=== PATIENT | male | born 1970 | race Two or more races ===

== ENCOUNTER 2020-05-18 14:05 | Outpatient (REF) | payer OTHER, SELFPAY | END 2020-05-18 14:06 | disposition home or self-care (01) | LOC: HO.LAB 14:05 | PROVIDERS: Visit Provider Internal Medicine | DX: Z20.822 Contact with and (suspected) exposure to COVID-19 (principal) | CPT/HCPCS: 36415; C9803; U0003 ==

== ENCOUNTER 2020-05-31 12:18 | Outpatient (REF) | payer OTHER, SELFPAY | END 2020-05-31 12:19 | disposition home or self-care (01) | LOC: HO.LAB 12:18 | PROVIDERS: Visit Provider Internal Medicine | DX: Z20.822 Contact with and (suspected) exposure to COVID-19 (principal) | CPT/HCPCS: 36415; C9803; U0003; U0005 ==

== ENCOUNTER 2021-06-04 10:07 | Outpatient (REF) | payer OTHER, SELFPAY ==
[2021-06-04 10:42] LABS: COVID-19 Test Negative (Negative)
== END 2021-06-04 10:08 | disposition home or self-care (01) ==
LOC: HO.LAB 10:07
PROVIDERS: Visit Provider Internal Medicine
DX: Z20.822 Contact with and (suspected) exposure to COVID-19 (principal)
CPT/HCPCS: 87635; C9803

== ENCOUNTER 2021-09-14 07:06 | Outpatient (REF) | payer OTHER, SELFPAY ==
[2021-09-14 07:24] LABS: MANUAL DIFF FLAG NO
[2021-09-14 07:43] LABS: Basophils Absolute Auto 0.1 X10*3/uL (0.0-0.2); Basophils Percent Auto 0.7 % (0-2); Eosinophils Absolute Auto 0.2 X10*3/uL (0.0-0.4); Eosinophils Percent Auto 2.2 % (0-4); Hematocrit 36.6 % (42.0-52.0); Imm Gran Abs Auto 0.02 X10*3/uL (0.00-0.03); Imm Gran Pct Auto 0.3 % (0.0-0.4); Lymphocytes Absolute Auto 1.7 X10*3/uL (1.2-4.9); Lymphocytes Percent Auto 24.6 % (20-40); Mean Corpuscular HGB Conc 32.8 g/dl (31.0-36.0); Mean Corpuscular Volume 88.4 fL (80.0-98.0); Mean Platelet Volume 8.9 fL (9.4-12.4); Monocytes Absolute Auto 0.5 X10*3/uL (0.1-1.2); Monocytes Percent Auto 7.6 % (2-11); Neutrophils Absolute Auto 4.4 x10*3/uL (2.0-8.3); Neutrophils Percent Auto 64.6 % (45-73); Platelet Count 396 X10*3/uL (160-400); Red Blood Count 4.14 X10*6/uL (4.60-5.80); Red Cell Distribution Width 13.5 % (11.0-16.0); White Blood Count 6.8 X10*3/uL (4.8-10.8)
[2021-09-14 08:10] LABS: Alanine Aminotransferase 15 U/L (0-40); Albumin Level 4.2 g/dL (3.5-5.0); Alkaline Phosphatase 113 U/L (39-117); Anion Gap 10 (12-20); Aspartate Amino Transferase 26 U/L (5-37); Bilirubin Total 0.4 mg/dL (0.0-1.0); Blood Urea Nitrogen 13 mg/dL (9-16); Calcium 9.8 mg/dL (8.4-10.2); Carbon Dioxide 26 mmol/L (22-29); Chloride 105 mmol/L (96-108); Cholesterol 107 mg/dL; Estimated Glomerular Filt Rate > 60; Glucose Fasting 86 mg/dL (60-99); HDL Cholesterol 31 mg/dL; LDL Cholesterol Calculated 69 mg/dl; Potassium 4.2 mmol/L (3.3-5.1); Sodium 137 mmol/L (135-145); Total Protein 7.5 g/dL (6.5-8.0); Triglycerides 36 mg/dL
[2021-09-14 08:18] LABS: Erythrocyte Sedimentation Rate 8 MM/HR (0-15)
[2021-09-14 08:31] LABS: Prostate Specific Antigen Scr 1.02 ng/mL (<0.05-4.0); TSH reflex Free T4 2.01 uIU/mL (0.32-4.0)
[2021-09-14 08:33] LABS: Vitamin D 25-OH Total 34.1 ng/mL (>30)
[2021-09-14 09:59] LABS: Appearance Urine CLEAR; Color Urine YELLOW; Glucose Urine UA NEG (NEG); Leukocyte Esterase Urine NEG (NEG); Nitrite Urine NEG (NEG); Specific Gravity - Urine 1.015 (1.005-1.025); Urine Blood NEG (NEG); Urine Ketones NEG (NEG); Urine Protein NEG (NEG-TRACE)
[2021-09-14 10:22] LABS: Total Protein Urine Random 8 mg/dL (<12)
[2021-09-17 13:32] LABS: Complement C3 54 mg/dL (82-185)
[2021-09-18 11:56] LABS: DNAds, Crithidia Antibody Negative (Negative)
[2021-09-18 14:17] LABS: Anti DNA DS Antibody <1 IU/mL
== END 2021-09-14 07:07 | disposition home or self-care (01) ==
LOC: HO.LAB 07:06
PROVIDERS: PCP Internal Medicine; Visit Provider Internal Medicine
DX: Z00.00 Encounter for general adult medical examination without abnormal findings (principal); Z12.5 Encounter for screening for malignant neoplasm of prostate; E55.9 Vitamin D deficiency, unspecified; M32.9 Systemic lupus erythematosus, unspecified; M34.9 Systemic sclerosis, unspecified; M79.7 Fibromyalgia
CPT/HCPCS: 36415; 80053; 80061; 81003; 82306; 84153; 84156; 84443; 85025; 85652; 86140; 86160; 86225; 86255

== ENCOUNTER → 2021-10-15 14:50 | Outpatient (BNVA) | payer OTHER, SELFPAY | PROVIDERS: PCP Internal Medicine; Visit Provider Orthopaedic Surgery | DX: S66.122D Laceration of flexor muscle, fascia and tendon of right middle finger at wrist and hand level, subsequent encounter (principal) | CPT/HCPCS: 99202 ==

== ENCOUNTER → 2021-11-12 14:51 | Outpatient (BNVA) | payer OTHER, SELFPAY | PROVIDERS: PCP Internal Medicine; Visit Provider Nurse Practitioner | DX: Z01.818 Encounter for other preprocedural examination (principal); J84.89 Other specified interstitial pulmonary diseases; M35.9 Systemic involvement of connective tissue, unspecified | CPT/HCPCS: 99202; 99212 ==

== ENCOUNTER 2021-11-25 12:29 | Outpatient (REF) | payer OTHER, SELFPAY ==
[2021-11-25 12:58] LABS: Binax Internal Control QC Valid; Binax Now Covid-19 Ag Negative (Negative)
== END 2021-11-25 12:30 | disposition home or self-care (01) ==
LOC: HO.HMGCLDS 12:29
PROVIDERS: PCP Internal Medicine; Visit Provider Internal Medicine
DX: Z20.822 Contact with and (suspected) exposure to COVID-19 (principal); J06.9 Acute upper respiratory infection, unspecified
CPT/HCPCS: 0241U; 71046; 87811; 99282; 99283; C9803

== ENCOUNTER 2021-11-25 16:54 | Emergency (ER) | payer OTHER, SELFPAY ==
--- NOTE | ~2021-11-25 | XR_ITS ---
EXAMINATION: XR CHEST CLINICAL INFORMATION: Shortness of breath COMPARISON: Chest radiograph 04/18/2017, CTA chest 09/11/2016 TECHNIQUE: 2 views of the chest were obtained. FINDINGS: Heart size normal. No evidence of gross CHF. Of note, there is a new left-sided perihilar infiltrate present. Some minimal perihilar streaky densities are present on the right which were also present in 2017. At the time of the 2017 study emphysema was shown in both lungs along with groundglass and reticular opacities suggesting interstitial lung disease. No pleural effusions are seen. No definite lung masses are seen XR/XR chest 2V IMPRESSION: New left perihilar infiltrate which could be infectious etiology. Contrast-enhanced chest CT may be useful for further evaluation.
[2021-11-25 18:30] VITALS: BP 118/71; PULSE 87; RESP 18; TEMP 37.3; O2SAT 98; BMI 25.8
[2021-11-25 19:21] LABS: Influenza A PCR NEGATIVE (Negative); Influenza B PCR NEGATIVE (Negative); Resp Syncy Virus RNA Qual PCR NEGATIVE (Negative); SARS COV2 PCR INHOUSE POSITIVE (Negative)
--- NOTE | 2021-11-25 21:48 | ED_ITS ---
HPI - URI/Sore Throat General Chief Complaint: Upper Respiratory Symptoms Stated Complaint: covid? Time Seen by Provider: 11/25/21 21:21 Source: patient Mode of arrival: ambulatory Limitations: no limitations History of Present Illness HPI Narrative: Patient presents emergency department for evaluation of shortness of breath, sore throat, fevers, diarrhea. Reports symptom onset 3 days ago. Denies any known sick contacts. Has not been vaccinated for COVID-19. Denies headache, vision changes, dizziness, lightheadedness, neck pain, neck stiffness, chest pain, nausea, vomiting, abdominal pain, numbness or tingling in the extremities, weakness. Related Data Home Medications Medication Instructions Recorded Confirmed hydroxychloroquine 200 mg tablet 200 mg PO BID 09/11/21 09/11/21 mycophenolate mofetil 500 mg tablet 1,500 mg PO BID 09/11/21 09/11/21 Previous Rx's Medication Instructions Recorded peg 3350-electrolytes 236 240 ml PO Q10M 1 day #4,000 mL 11/12/21 gram-22.74 gram-6.74 gram-5.86 gram solution (Golytely) amoxicillin 875 mg-potassium 1 tab PO Q12H 7 days #14 tabs 11/25/21 clavulanate 125 mg tablet Allergies Allergy/AdvReac Type Severity Reaction Status Date / Time No Known Allergies Allergy Verified 11/25/21 18:33 [No Known Allergies*] Review of Systems Review of Systems: Constitutional: Positive fever. Positive chills. No weak ness. Positive fatigue. ENT/ Mouth: No Ear Pain, no Nasal Congestion, positive sore throat, No Rhinorrhea, No Swallowing Difficulty Skin: No rash or itching. Cardiovascular: No chest pain. No palpitations. Respiratory: No shortness of breath. Positive cough. No sputum production. Gastrointestinal: No nausea. No vomiting. Positive diarrhea. No abdominal pain. Genitourinary: No burning micturition. No urinary frequency. Neurologic: No headache. No dizziness. No syncope. No numbness or tingling in the extremities. Musculoskeletal: No muscle pain. No back pain. No joint pain or stiffness. Yes all other systems are reviewed and are negative PMFSH Past Medical History Attestation statement: The following information was validated with the patient. Source: old records reviewed Medical History Interstitial lung disease due to connective tissue disease Scleroderma Systemic lupus erythematosus Surgical History H/O left inguinal hernia repair (~1976) History of lymph node excision (~10/08/16) S/P tendon repair (~09/23/17) Family History Family History Father Diabetes High blood pressure Mother High blood pressure Social History Social History Housing: House Alcohol intake: former Patient Tobacco Use Status: Never used Tobacco Second Hand Smoke Exposure: No Advance Directives: No Advance Directives Information Provided: No service: No Current occupational status: employed 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 Blood pressure normal.? Heart rate normal.? Respiration rate normal. Temperature normal.? Oxygen saturation normal. Appearance: Alert.?Oriented to person, place and time. No acute distress.?Normal affect. Eyes: Pupils equal, round and reactive to light.? ENT: TM normal bilaterally. Pharynx normal.?? Neck: Normal inspection.? Neck supple.??No cervical adenopathy CVS: Heart sounds normal. Normal heart rate and rhythm.? Pulses normal.?? Respiratory: No respiratory distress.? Lung sounds clear to auscultation b ilaterally?? Abdomen: Soft and non-tender. Normoactive bowel sounds. Skin: Skin warm and dry.? Normal skin color.? ? Extremities: No lower extremity edema.? Neuro: Moves all extremities spontaneously. Sensation intact bilaterally. No motor deficits. Ambulates with normal steady gait. Course Course Course Narrative: Patient is a 50-year-old male with past medical history of lupus, scleroderma, interstitial lung disease, presenting for evaluation of upper respiratory symptoms. COVID-19 testing is positive. One would aware of this he states that he actually tested positive for COVID-19 1 month ago, at that time he was having mild URI symptoms and diarrhea. He has not been vaccinated for COVID-19. Since it has been greater than 7 days, patient would not be a candidate for monoclonal antibodies or Paxlovid. Given his past medical history, obtained chest x-ray which revealeda left perihilar infiltrate concerning for pneumonia. Given past medical history, immunosuppression concern for superimposed bacterial infection, will cover with Augmentin. Ambulatory O2 trial with no hypoxia or significant tachycardia. Well-appearing, nontoxic, afebrile, at rest no tachycardia or tachypnea/hypoxia. Speaking clear full sentences, ambulatory with steady gait. Discussed conservative treatment including rest, hydration, Tylenol/ibuprofen as needed for fever and body aches, saline nasal spray, humidifier, [id number] cold medication. Advised to follow-up with primary care provider within 1-3 days, discussed reasons to return back to the emergency department. All questions were answered. Patient discharged home in stable condition. MDM - URI/Sore Throat Medical Records Attestation: I reviewed the patient's medical records. Lab Data Attestation: I reviewed the patient's lab results. Labs: Lab Results 11/25/21 Range/Units 18:37 Influenza Type A (PCR) NEGATIVE (Negative) Influenza Type B (PCR) NEGATIVE (Negative) RSV RNA Qual (PCR) NEGATIVE (Negative) SARS-CoV-2 RNA (RT-PCR) POSITIVE A (Negative) Imaging Data Chest x-ray: Radiologist's impression: FINDINGS: Heart size normal. No evidence of gross CHF. Of note, there is a new left-sided perihilar infiltrate present. Some minimal perihilar streaky densities are present on the right which were also present in 2017. At the time of the 2017 study emphysema was shown in both lungs along with groundglass and reticular opacities suggesting interstitial lung disease. No pleural effusions are seen. No definite lung masses are seen XR/XR chest 2V IMPRESSION: New left perihilar infiltrate which could be infectious etiology. Contrast-enhanced chest CT may be useful for further evaluation. Discharge Plan Discharge Clinical Impression: COVID-19, Pneumonia Patient Disposition: Home, Self-Care Instructions: Pneumonia (ED), COVID-19 (Coronavirus Disease 2019) (ED) Additional Instructions: Your COVID-19 test was positive. Be sure to wear a mask, socially distance, you should isolate for 5 days, if her symptoms had resolved after 5 days, and your without a fever for 24 hour. Without the use of Tylenol/ibuprofen you may enter isolation. Additionally, your chest x-ray shows an area on the left concerning for a pneumonia, for this you have been given a course of antibiotics, please complete this entire course. If you develop worsening symptoms, fevers not responding to Tylenol, chest pain, difficulty breathing, confusion, or any new/worsening concerns you should return back to the emergency department for evaluation. Please contact your primary care provider to arrange for a follow-up visit within 1-3 days Prescriptions: New amoxicillin-pot clavulanate 875-125 mg tablet 1 tab PO Q12H 7 Days Qty: 14 0RF No Action hydroxychloroquine 200 mg tablet 200 mg PO BID mycophenolate mofetil 500 mg tablet 1,500 mg PO BID peg 3350-electrolytes [Golytely] 236-22.74-6.74 -5.86 gram recon soln 240 ml PO Q10M 1 Days Qty: 4000 0RF Rx Instructions: until fecal effluent is clear; do not exceed a total volume of 2,000 mL Interventions: ED Discharge Assessment Last Done: 11/25/21 23:06 Discharge Date/Time: 11/25/21 23:08
[2021-11-25 21:50] VITALS: PULSE 105; O2SAT 98
== END 2021-11-25 23:08 | disposition home or self-care (01) ==
PROVIDERS: Emergency Provider Emergency Medicine; PCP Internal Medicine
DX: U07.1 COVID-19 (principal); J12.82 Pneumonia due to coronavirus disease 2019; J02.9 Acute pharyngitis, unspecified; R06.02 Shortness of breath; M32.9 Systemic lupus erythematosus, unspecified
CPT/HCPCS: 0241U; 71046; 87811; 99282; 99283; C9803

== ENCOUNTER 2021-12-14 07:23 | Outpatient (REF) | payer OTHER, SELFPAY ==
[2021-12-14 07:54] LABS: MANUAL DIFF FLAG NO
[2021-12-14 08:20] LABS: Basophils Percent Auto 0.4 % (0-2); Eosinophils Percent Auto 0.4 % (0-4); Hematocrit 34.2 % (42.0-52.0); Hemoglobin 10.9 g/dl (14.0-18.0); Imm Gran Abs Auto 0.03 X10*3/uL (0.00-0.03); Imm Gran Pct Auto 0.4 % (0.0-0.4); Lymphocytes Absolute Auto 1.3 X10*3/uL (1.2-4.9); Mean Corpuscular HGB Conc 31.9 g/dl (31.0-36.0); Mean Corpuscular Volume 87.9 fL (80.0-98.0); Mean Platelet Volume 9.3 fL (9.4-12.4); Monocytes Absolute Auto 0.4 X10*3/uL (0.1-1.2); Neutrophils Absolute Auto 6.2 x10*3/uL (2.0-8.3); Neutrophils Percent Auto 77.8 % (45-73); Platelet Count 412 X10*3/uL (160-400); Red Blood Count 3.89 X10*6/uL (4.60-5.80); Red Cell Distribution Width 13.7 % (11.0-16.0)
[2021-12-14 08:30] LABS: Appearance Urine Clear; Color Urine Yellow; Glucose Urine UA Negative (Negative); Leukocyte Esterase Urine Negative (Negative); Nitrite Urine Negative (Negative); PH 5.5 (5.0-8.0); Specific Gravity - Urine 1.025 (1.005-1.025); Urine Blood Negative (Negative); Urine Ketones Negative (Negative); Urine Protein Trace mg/dL (Neg-Trace)
[2021-12-14 08:45] LABS: Alanine Aminotransferase 13 U/L (0-40); Alkaline Phosphatase 90 U/L (39-117); Anion Gap 13 (12-20); Aspartate Amino Transferase 14 U/L (5-37); Bilirubin Total 0.4 mg/dL (0.0-1.0); Blood Urea Nitrogen 14 mg/dL (9-16); C Reactive Protein 0.18 mg/dL (< or = 0.50); Calcium 9.1 mg/dL (8.4-10.2); Carbon Dioxide 25 mmol/L (22-29); Chloride 105 mmol/L (96-108); Estimated Glomerular Filt Rate > 60; Glucose Random 97 mg/dL (60-115); Potassium 4.2 mmol/L (3.3-5.1); Sodium 139 mmol/L (135-145); Total Protein 7.3 g/dL (6.5-8.0)
[2021-12-14 08:54] LABS: Creatinine Urine 131.08 mg/dL; Protein/Creatinine Ratio, Ur 0.14 (<0.2); Total Protein Urine Random 19 mg/dL (<12)
[2021-12-14 09:24] LABS: Erythrocyte Sedimentation Rate 12 MM/HR (0-15)
[2021-12-16 16:17] LABS: Anti DNA DS Antibody <1 IU/mL
[2021-12-17 11:12] LABS: Complement C3 92 mg/dL (82-185)
[2021-12-18 06:32] LABS: DNAds, Crithidia Antibody Negative (Negative)
== END 2021-12-14 07:24 | disposition home or self-care (01) ==
LOC: HO.LAB 07:23
PROVIDERS: PCP Internal Medicine; Visit Provider Internal Medicine Rheumatology
DX: M32.13 Lung involvement in systemic lupus erythematosus (principal)
CPT/HCPCS: 36415; 80053; 81003; 84156; 85025; 85652; 86140; 86160; 86225; 86255

== ENCOUNTER 2022-01-07 15:12 | Outpatient (REF) | payer OTHER, SELFPAY | END 2022-01-07 15:13 | disposition home or self-care (01) | LOC: HO.LAB 15:12 | PROVIDERS: PCP Internal Medicine; Visit Provider Internal Medicine | DX: Z13.89 Encounter for screening for other disorder (principal) ==

== ENCOUNTER 2022-01-11 07:59 | Outpatient (REF) | payer OTHER, SELFPAY ==
[2022-01-11 09:00] LABS: Leukocytes Stool Qualitative NEGATIVE (NEGATIVE)
== END 2022-01-11 08:00 | disposition home or self-care (01) ==
LOC: HO.LNP 07:59
PROVIDERS: Visit Provider Internal Medicine
DX: R19.7 Diarrhea, unspecified (principal)
CPT/HCPCS: 87070; 87177; 87205; 87209; 89055

== ENCOUNTER 2022-01-28 13:28 | Outpatient (REF) | payer OTHER, SELFPAY | END 2022-01-28 13:29 | disposition home or self-care (01) | LOC: HO.LAB 13:28 | PROVIDERS: PCP Internal Medicine; Visit Provider Internal Medicine | DX: Z13.89 Encounter for screening for other disorder (principal) ==

== ENCOUNTER 2022-02-24 07:24 | Outpatient (REF) | payer OTHER, SELFPAY ==
--- NOTE | ~2022-02-24 | CT_ITS ---
EXAMINATION: CT CHEST WITHOUT CONTRAST CLINICAL INFORMATION: Abnormal lung findings on chest x-ray 11/25/2021. COMPARISON: Chest x-ray 11/25/2021. TECHNIQUE: Multidetector volumetric CT imaging of the chest was done. Axial MIP volume rendering provided. Sagittal and coronal reformatted images were obtained. This CT examination was performed using dose optimization techniques as appropriate, variously including the following: *Automated exposure control *Adjustment of mA and/or kV according to patient size (this includes techniques or standardized protocols for targeted exams where dose is matched to indication/reason for exam; i.e. extremities or head) *Use of iterative reconstruction technique DLP: 142 mGy-cm FINDINGS: [employer]: Well-expanded lungs with bilateral parahilar haziness. LUNGS: The lungs are well expanded with peripheral-based focal honeycombing seen in the right upper lobe anterior segment, minimal involvement of the left upper lobe anterior segment, superior and basilar segments of both lower lobe. No focal consolidation, mass or nodule seen. Similar findings are also seen involving the dependent segments of the right middle lobe. No parahilar soft tissues abnormality seen to corroborate chest x-ray findings. There is a subpleural 3 mm nodule in the right middle lobe, axial image 139/6. Punctate calcification is seen in both lower lobes in dependent segments, nonspecific. MEDIASTINUM: The thyroid lobes are symmetrical with a hypodense 1.1 cm nodule right lobe. The central trachea and the bronchi widely patent. Heart size and the great vessels are of normal caliber. No pericardial effusion is seen. No abnormal size mediastinal or hilar lymph nodes are seen. There is no pericardial effusion. CORONARY ARTERY CALCIFICATION: None visualized on this study. PLEURA: There is no pleural effusion. No pleural mass or thickening. AXILLA: There are bilateral moderate size axillary lymph nodes. The largest right axillary lymph node with eccentric lucency measures 2.1 cm on axial image 9/8 and left axillary lymph node measures 2.1 cm on axial image 10/3. UPPER ABDOMEN: Visualized liver, spleen, pancreas appears unremarkable. There is a 2.3 cm cyst of the upper/midpole of the right kidney. OSSEOUS STRUCTURES: No aggressive lytic or sclerotic process is seen. CT/CT chest wo IV con IMPRESSION: 1. Peripheral-based honeycombing seen in both upper lobes and both lower lobes. No focal consolidation, mass or nodule seen. Findings may represent low-grade inflammatory or infectious etiology. However similar findings can be seen with pulmonary fibrosis. 2. There is a subpleural 3 mm nodule right middle lobe. 3. No abnormal mediastinal or hilar lymph nodes seen. 4. Bilateral moderate size axillary lymph nodes with eccentric fatty lucency. Question benign etiology. 5. Right renal cyst. Fleischner guidelines were followed.
--- NOTE | 2022-02-24 17:36 | PFT_ITS ---
Forced vital capacity 86%, FEV1 90%, FEV1 over FVC ratio is 82. HHO15-80 98% and MVV is 92%. Post bronchodilator therapy, there is no significant change. Total lung capacity 73%. Residual volume is 46%. Diffusion capacity 70%. CONCLUSION: Possible mild restrictive pulmonary disorder. No obstructive airway disorder. No significant response to bronchodilator therapy. MD NGHIA Jara/MODL / [id number]
== END 2022-02-24 07:25 | disposition home or self-care (01) ==
LOC: HO.RESP 07:24
PROVIDERS: PCP Internal Medicine; Visit Provider Hospitalist
DX: R39.89 Other symptoms and signs involving the genitourinary system (principal); M34.9 Systemic sclerosis, unspecified; M32.13 Lung involvement in systemic lupus erythematosus; J84.89 Other specified interstitial pulmonary diseases; M35.9 Systemic involvement of connective tissue, unspecified
CPT/HCPCS: 71250; 94060; 94727; 94729

== ENCOUNTER 2022-04-07 09:06 | Day surgery (SDC) | payer OTHER, SELFPAY ==
[2022-04-02 12:02] VITALS: BMI 25.0
--- NOTE | 2022-04-04 13:21 | HO.ANESPROP2 ---
Documented by User: Heather Angeles NP 04/04/22 13:25 HPI - Anesthesia Eval Consult details Narrative: 51yo M for Colonoscopy SLE with ILD - on plaquinel. Per pulmo visit 01/2022 In his pulmonary capacity has significantly improved. He feels alot better.? His last PFTs demonstrated a total lung capacity of 72% predicted and his last CT scan was about a couple years ago. [facility] Active Problems Active Problems: All Active Problems (Updated 04/02/22 @ 11:45 by Mariya Jones RN) Contracture of joint of right hand (Acute) Annual physical exam (Acute) Colon cancer screening (Acute) Preop examination (Acute) Upper respiratory tract infection (Acute) COVID-19 (Acute) Diarrhea (Acute) Inflammatory arthritis (Acute) Abnormal chest x-ray (Acute) Scleroderma (Acute) Systemic lupus erythematosus (Acute) Interstitial lung disease due to connective tissue disease (Acute) Past Medical History Medical History (Updated 04/02/22 @ 11:45 by Mariya Jones RN) History of COVID-19 Interstitial lung disease due to connective tissue disease Scleroderma Systemic lupus erythematosus Family History Family History Father Diabetes High blood pressure Mother High blood pressure Surgical History Surgical History (Updated 04/02/22 @ 11:46 by Mariya Jones RN) H/O left inguinal hernia repair (~1976) History of lymph node excision (~10/08/16) S/P tendon repair (~09/23/17) Social History Social History Housing: House Alcohol intake: former Patient Tobacco Use Status: Never used Tobacco Second Hand Smoke Exposure: No Are you DNR?: No Advance Directives: No Advance Directives Information Provided: Yes service: No Current occupational status: employed 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 Cognitive needs: No Hearing needs: No Vision needs: No Meds Allergies Allergy/AdvReac Type Severity Reaction Status Date / Time No Known Allergies Allergy Verified 04/07/22 09:15 [No Known Allergies*] Home Medications Medication Instructions Recorded Confirmed Last Taken Type hydroxychloroquine 200 mg tablet 200 mg PO BID 09/11/21 04/07/22 Unknown History mycophenolate mofetil 500 mg tablet 1,500 mg PO BID 09/11/21 04/07/22 Unknown History Exam Exam Date and Time: April 04, 2022 1321 Height,Weight and Vital Signs: Height 5 ft 7 in Weight 72.575 kg Pertinent Lab Results Pertinent Lab Results: Laboratory Tests 12/14/21 12/14/21 07:53 07:53 WBC 8.0 Hgb 10.9 L Hct 34.2 L Plt Count 412 H Sodium 139 Potassium 4.2 Chloride 105 Carbon Dioxide 25 BUN 14 Creatinine 0.79 Assessment and Plan Assessment Anesthesia Assessment: Chart Reviewed Documented by User: Juliette Moeller MD 04/07/22 09:43 [facility] Past Medical History Medical History (Updated 04/02/22 @ 11:45 by Mariya Jones RN) History of COVID-19 Interstitial lung disease due to connective tissue disease Scleroderma Systemic lupus erythematosus Family History Family History Father Diabetes High blood pressure Mother High blood pressure Family history of problems with anesthesia: No Surgical History Surgical History (Updated 04/02/22 @ 11:46 by Mariya Jones RN) H/O left inguinal hernia repair (~1976) History of lymph node excision (~10/08/16) S/P tendon repair (~09/23/17) History of Problems with Anesthesia: No Social History Social History Housing: House Alcohol intake: former Patient Tobacco Use Status: Never used Tobacco Second Hand Smoke Exposure: No Are you DNR?: No Advance Directives: No Advance Directives Information Provided: Yes service: No Current occupational status: employed 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 Cognitive needs: No Hearing needs: No Vision needs: No Meds Allergies Allergy/AdvReac Type Severity Reaction Status Date / Time No Known Allergies Allergy Verified 04/07/22 09:15 [No Known Allergies*] Home Medications Medication Instructions Recorded Confirmed Last Taken Type hydroxychloroquine 200 mg tablet 200 mg PO BID 09/11/21 04/07/22 Unknown History mycophenolate mofetil 500 mg tablet 1,500 mg PO BID 09/11/21 04/07/22 Unknown History Exam Airway Mallampati Class: II (Prostatic teeth too front 2) TM Dist: >3cm Neck ROM: Full Heart: rrr Lungs: cta Assessment and Plan Assessment Anesthesia Assessment: Anesthesia Plan Discussed Final Anesthetic Review Family History of Problems with Anesthesia: No History of Problems with Anesthesia: No NPO: Yes ASA Class: III Final Preanesthetic Review: No Changes in Pt Med Stat, Meds/Allgs Chart Reviewed and Consent Obtained/Reviewed Patient Risk: Intermediate Procedure Risk: Intermediate Anesthetic Plan Anesthetic Plan: MAC: Disposition: Standard PACU
--- NOTE | 2022-04-07 09:18 | MHC.SHP ---
Pre-Procedural Eval Section A Date of Service: 04/07/22 The patient is an INPATIENT: No The History & Physical has been completed within 30 days and I have reviewed it.: No Section B Chief Complaint: screening Details of Present Illness: colon cancer screening Relevant Family History (Specify if Yes): No Relevant Social History: None Present Medications: see Short Stay Collaborative assessment Medical History: Significant History (Scleroderma Interstitial lung disease SLE Right hand contracture ) History of Previous Operations: Relevant previous surgery/procedure and date(s) (Left inguinal hernia repair Lymph node extraction Tendon repair right hand *) Allergies: Allergies Allergy/AdvReac Type Severity Reaction Status Date / Time No Known Allergies Allergy Verified 04/07/22 09:15 [No Known Allergies*] Review of Systems Sugical H&P ROS: Negative: Constitution, Cardiovascular, Respiratory and Gastrointestinal Exam Surgical H&P Exam: Normal: Heart, Normal: Lungs, Normal: Extremities and Normal: Abdomen Plan Diagnosis/Plan: Unchanged I have reviewed the history and physical and performed a pertinent physical examination on my patient. No changes have occurred unless specified. Time Spent With Patient Time: Total time managing care of this patient today ____ minutes.
[2022-04-07 09:19] VITALS: BMI 25.8
[2022-04-07 09:22] VITALS: BP 127/82; PULSE 102; RESP 16; TEMP 36.3; O2SAT 100
[2022-04-07] MEDS: Lactated Ringers 1,000 ML 100 ML IVCONT (09:30)
--- NOTE | 2022-04-07 10:02 | P.BOP_ITS ---
Brief Operative Note Date of Service: 04/07/22 Pre-op diagnosis: colon cancer screening Post-op diagnosis: other ( diverticulosis, hemorrhoids) Procedure: COLONOSCOPY TO CECUM Surgeon: Morena Arzate MD Anesthesia: MAC Was an Medicaid Collection Specialist used for this Procedure?: Yes Medicaid Collection Specialist: Anabel Pettit Estimated blood loss (mL): 0 Pathology: none sent Condition: stable Disposition: PACU
--- NOTE | 2022-04-07 10:02 | P.OP_ITS ---
Operative Note Operative Note Date of Service: 04/07/22 Narrative: Pre-op diagnosis: colon cancer screening Post-op diagnosis:?other ( diverticulosis, hemorrhoids) Surgeon: Morena Arzate MD Anesthesia:?MAC COLONOSCOPY TILL CECUM Consent: Indications for the procedure and potential complications of bleeding, perforation, reaction to medications and missed diagnosis were discussed with the patient and informed consent was obtained. Instrument: Olympus PCF H 190 L variable stiffness pediatric colonoscope Monitoring: Vital signs and clinical assessment, intermittent blood pressure monitoring, continuous EKG monitoring, Pulse oximetry and Carbon Dioxide monitoring were done throughout the procedure. Colon withdrawl time was 19 minutes. Procedure: The patient was placed in the left lateral decubitis position and pre-procedure medications were administered. After a digital rectal examination of the ano-rectum, the video colonoscope was inserted into the rectum and advanced through the colon to the cecum. The colonoscope was slowly withdrawn in a retrograde panoramic fashion and the colon mucosa was carefully examined including a retroflexed view of the rectum. Findings and interventions are described below. Procedure Difficulty: Without difficulty Findings: Terminal Ileum: Not evaluated Cecum: Normal Ascending Colon: Normal Transverse Colon: Normal Descending Colon: Normal Sigmoid Colon: Moderate diverticulosis Rectum: Normal Ano-rectum: Moderate internal hemorrhoids Colon preparation: Good after copious irrigation. There was excessive spasm throughout the colon and some areas were not well visualized. Impression and Post Procedure Diagnosis: Colonoscopy Findings: No polyps were detected Moderate diverticulosis seen in the sigmoid colon Moderate hemorrhoids on retroflexed exam. Plan: Patient has an appointment on 04/22/22 in the GI Clinic with Jennyfer Naidu FNP- [facility]. Repeat Colonoscopy in 5 years (since there was excessive spasm in the colon and some areas were not well visualized). Diverticulosis handouts were given in the discharge area
[2022-04-07 10:40] VITALS: BP 100/68; PULSE 83; RESP 16; TEMP 36.1; O2SAT 98
[2022-04-07 10:55] VITALS: BP 117/74; PULSE 69; RESP 12; TEMP 36.4; O2SAT 99
== END 2022-04-07 11:27 | disposition home or self-care (01) ==
PROVIDERS: PCP Internal Medicine; Visit Provider Internal Medicine Gastroenterology
PROC: 0DJD8ZZ Inspection of Lower Intestinal Tract, Via Natural or Artificial Opening Endoscopic (ICD-10-PCS; CPT 45378; principal; 2022-04-07 10:20)
DX: Z12.11 Encounter for screening for malignant neoplasm of colon (principal); K57.30 Diverticulosis of large intestine without perforation or abscess without bleeding; K64.8 Other hemorrhoids; M34.9 Systemic sclerosis, unspecified; M32.9 Systemic lupus erythematosus, unspecified; J84.89 Other specified interstitial pulmonary diseases; M35.9 Systemic involvement of connective tissue, unspecified; Z79.899 Other long term (current) drug therapy; Z98.890 Other specified postprocedural states; Z86.16 Personal history of COVID-19
CPT/HCPCS: 45378

== ENCOUNTER → 2022-04-08 09:50 | Outpatient (BNVA) | payer OTHER, SELFPAY | PROVIDERS: PCP Internal Medicine; Visit Provider Hospitalist | DX: M34.9 Systemic sclerosis, unspecified (principal) ==

== ENCOUNTER → 2022-05-22 16:25 | Outpatient (BNVA) | payer OTHER, SELFPAY | PROVIDERS: PCP Internal Medicine; Visit Provider Nurse Practitioner | DX: Z13.89 Encounter for screening for other disorder (principal) ==

== ENCOUNTER → 2022-11-18 09:44 | Outpatient (BNVA) | payer OTHER, SELFPAY | PROVIDERS: PCP Internal Medicine; Visit Provider Physician Assistant Medical | DX: S46.911A Strain of unspecified muscle, fascia and tendon at shoulder and upper arm level, right arm, initial encounter (principal); S39.012A Strain of muscle, fascia and tendon of lower back, initial encounter; W01.0XXA Fall on same level from slipping, tripping and stumbling without subsequent striking against object, initial encounter; W10.8XXA Fall (on) (from) other stairs and steps, initial encounter | CPT/HCPCS: 99203 ==

== ENCOUNTER 2022-12-02 19:39 | Outpatient (REF) | payer OTHER, SELFPAY ==
--- NOTE | ~2022-12-02 | MR_ITS ---
EXAMINATION: MR SHOULDER WITHOUT CONTRAST, RIGHT CLINICAL INFORMATION: Fall on stairs. Decreased range of motion. COMPARISON: Radiograph dated 11/18/2022. TECHNIQUE: MRI of the shoulder without contrast was performed on a high-field scanner. FINDINGS: ROTATOR CUFF: A massive full-thickness rotator cuff tear propagates from the inferior fibers of the subscapularis tendon at the insertion through the rotator interval and supraspinatus tendon into the infraspinatus tendon, potentially sparing a few of the posterior infraspinatus tendon fibers. This tear measures approximately 6 cm AP. The supraspinatus tendon is retracted by 6 cm, terminating medial to the glenoid fossa. There is a thin band of residual intact bursal-sided and inferior fibers of the subscapularis tendon, though the majority of the subscapularis is disrupted. The teres minor tendon is intact. There is moderate atrophy of the supraspinatus muscle with grade 2 fatty replacement. There is more mild infraspinatus muscle atrophy. Assessment of subscapularis muscle atrophy is somewhat limited by the degree of retraction, though it is at least mild in severity. BICEPS: The proximal tendon of the long head of the biceps is medially dislocated from the bicipital groove with tendinosis and partial tearing at the segment passing through the subscapularis tendon tear. CORACOACROMIAL ARCH: The undersurface of the acromion is curved with anterior and lateral subacromial spurs. Moderate acromioclavicular osteoarthritis. A large volume of fluid is present in the subacromial-subdeltoid bursa, contiguous with the underlying glenohumeral joint. Undersurface of the acromion is remodeled by the humeral head with effacement of the subacromial space interval. LABRUM/CAPSULE: The labrum is diminutive anteriorly and inferiorly, likely due to a combination of developmental variation and superimposed labral degeneration. Axillary pouch is intact. The superior glenohumeral ligament, middle glenohumeral ligament, and coracohumeral ligament are disrupted along with the adjacent supraspinatus and subscapularis tendons. GLENOHUMERAL JOINT/MARROW: As noted above, there is cephalad migration of the humeral head, abutting the undersurface of the acromion. There is relatively mild nonuniform chondral thinning at the humeral head superiorly with associated cortical irregularity and subcortical cystic change. Glenoid articular cartilage appears relatively well preserved. Small marginal osteophytes. Large complex glenohumeral joint effusion with mild synovitis. MR/MR shoulder RT wo con IMPRESSION: 1. Massive full-thickness rotator cuff tear involving the entirety of the supraspinatus tendon and the majority of the subscapularis and infraspinatus tendons. There is moderate associated supraspinatus muscle atrophy and more mild infraspinatus muscle atrophy. 2. Medial dislocation of the tendon of the long head of the biceps with associated tendinosis and partial tearing. 3. Moderate acromioclavicular and mild glenohumeral osteoarthritis. 4. Anterior and lateral subacromial spurs.
== END 2022-12-02 19:40 | disposition home or self-care (01) ==
LOC: HO.MRI 19:39
PROVIDERS: PCP Internal Medicine; Visit Provider Internal Medicine
DX: M26.52 Limited mandibular range of motion (principal); Z91.81 History of falling
CPT/HCPCS: 73221

== ENCOUNTER → 2022-12-08 09:35 | Outpatient (BNVA) | payer OTHER, SELFPAY | PROVIDERS: PCP Internal Medicine; Visit Provider Physician Assistant Medical | DX: M75.121 Complete rotator cuff tear or rupture of right shoulder, not specified as traumatic (principal); M54.50 Low back pain, unspecified | CPT/HCPCS: 99213 ==

== ENCOUNTER → 2023-04-03 07:47 | Outpatient (REF) | payer OTHER, SELFPAY ==
--- NOTE | 2023-04-03 07:56 | CA_ITS ---
Transthoracic Echocardiogram Patient (Last, First, Middle): Bob Deluca, Gender: Male Date of : 1970 Age: 52 Procedure Date: 04/03/2023 Procedure Type: Transthoracic Echocardiogram Location: OP Height: 170.18 cm Weight: 74.84 kg BSA: 1.86 m2 Heart Rate: bpm BP: 128 / 86 mmHg Orbitread Operator: TO Referring MD: Luis Gonzáles MD Symptoms: I27.20 - Pulmonary hypertension, unspecified Study Quality: Adequate Conclusions: - Normal left ventricular size, thickness, systolic function, and wall motion. The visually estimated ejection fraction is between 55-60%. - Normal right ventricular cavity size and systolic function. - The right atrium is mildly dilated. - There is no evidence of pulmonary hypertension. Findings Left Ventricle Normal left ventricular size, thickness, systolic function, and wall motion. The visually estimated ejection fraction is between 55-60%. Diastolic function is normal for age. Normal global longitudinal strain -18%. Right Ventricle Normal right ventricular cavity size and systolic function. Atria The left atrium is normal in size. The right atrium is mildly dilated. Aortic Valve There is a normal trileaflet aortic valve. There is no aortic valve stenosis. There is trace (trivial) aortic valve regurgitation. Mitral Valve The mitral valve appears normal. There is trace mitral valve regurgitation. There is no mitral valve stenosis. Pulmonic Valve The pulmonic valve is normal. There is trace pulmonic valve regurgitation. Tricuspid Valve Normal tricuspid valve structure. There is trace tricuspid valve regurgitation. Normal right atrial pressure. There is no evidence of pulmonary hypertension. Great Vessels All visible segments of the aorta are normal in size. The visualized portions of the pulmonary artery and branches are normal. Venous The inferior vena cava is normal in size and collapses greater than 50% with inspiration. Pericardium/Pleural There is no evidence of pericardial effusion. Measurements 2D Linear Measurements IVSd: 0.95 0.6-0.9/0.6-1.0 cm LVIDd: 5.03 3.9-5.3/4.2-5.9 cm LVIDd Index: 2.70 2.4-3.2/2.2-3.1 cm/m2 LVIDs: 3.34 2.0-3.6 cm LVPWd: 0.84 0.7-1.1 cm LA Diam: 3.80 2.7-3.8/3.0-4.0 cm LAIDs Index: 2.04 1.5-2.3 cm/m2 LV Mass: 198.57 67-162/88-224 g LV Mass Index: 106.76 43-95/49-115 g/m2 LVOT Diam: 2.20 3.0+(-)1.3 cm 2D Systolic Function EF 4C: 55.40 >55% EF 2C: 55.40 >55% EF BiP: 55.00 >55% Mitral Valve MV Pk E: 0.67 MV PK A: 0.65 MV Decel Time: 195.00 E/A: 1.00 E'Lateral: 9.90 E'Medial: 7.94 E/E' Med: 8.50 E/E' Lat: 6.80 PHT: 57.00 MVA PHT: 3.86 Decel Quay: 3.45 Aortic Valve AoV Pk Brandon: 1.18 AoV Mn Brandon: 0.86 AoV VTI: 0.24 AoV Pk Grad: 6.00 Aov Mn Grad: 3.00 ELIZABETH Cont.VTI: 2.82 LVOT LVOT Pk Brandon: 0.95 LVOT Mn Brandon: 0.55 LVOT VTI: 0.18 LVOT Pk Grad: 4.00 LVOT Mn Grad: 1.00 LVOT Diam: 2.20 LVOT Area: 3.80 Diastolic Function MV Pk E: 0.67 MV Pk A: 0.65 E/A: 1.00 E'Medial: 7.94 E/E' Med: 8.50 E' Laterial: 9.90 E/E' Lat: 6.80 Right Ventricle TAPSE (mm): 21.20 TVS' Brandon: 11.20 Tricuspid Valve TR Pk Brandon: 2.09 TR Pk Grad: 17.00 RA Press: 3.00 RVSP: 20.00 Great Vessels Aorta Sinus of Valsalva: 3.68 2.0-3.5 cm Ao Asc: 3.10 2.1-3.4 cm Updated in Other Vendor System with Status of Final Vinh Mason MD electronically signed on 04/03/2023 3:16:34 PM with status of Final
== END ==
LOC: HO.CARD 07:47
PROVIDERS: PCP Internal Medicine; Visit Provider Hospitalist
DX: I27.20 Pulmonary hypertension, unspecified (principal); M34.9 Systemic sclerosis, unspecified
CPT/HCPCS: 93306; 93356

== ENCOUNTER → 2023-04-03 07:56 | Outpatient (BNV) | payer OTHER, SELFPAY | PROVIDERS: PCP Internal Medicine; Visit Provider Internal Medicine Cardiovascular Disease | DX: I27.20 Pulmonary hypertension, unspecified (principal); M34.9 Systemic sclerosis, unspecified | CPT/HCPCS: 93306 ==

== ENCOUNTER 2025-02-15 13:39 | Outpatient (AMB) | payer OTHER, SELFPAY ==
--- NOTE | 2025-02-15 13:44 | A.OFFPC_ITS ---
Vital Signs 02/15/25 13:45 Height 5 ft 7 in Weight 173 lb BMI 27.1 BP 116/74 Blood Pressure Location Lt brachial Position Sitting Pulse 95 Pulse Source Pulse Oximeter Temp 97.1 F Temp Source Temporal Artery Scan Pulse Oximetry (%) 97 Oxygen Delivery Method Room Air Intake Visit Reasons: fungal infection on toes Intake Note: Patient is here to follow up on Fungal infection on toes. Transition Of Care Specialist Required: No Personal Care Home Administrator: Not Required per policy Accompanied by: Self / Same As Patient Allergies No Known Allergies (No Known Allergies*) Allergy (Verified 02/15/25 13:44) Tobacco use date assessed: 02/15/25 Dental Screening Dental Screen Date: 02/15/25 Did you have a dental visit in the last 12 months?: Yes Did you have a dental problem in the last 6 months where you did not have access to dental care?: No Was dental information given to patient?: Patient has dentist HPI HPI Comments History of Present Illness Details Patient is a 54-year-old male with history of interstitial lung disease, SLE with some sclerodermatous features who presents today for nail and skin issues. Patient presents with toenails changes that has been there for years, previously treated with a course of oral medication which helped with resolution of symptoms. However, recurred. Patient works outside all day long wear boots and socks most of the day. He is currently using an OTC topical solution that is not helping. He also reports rash on his back for which he used Selsun blue that did not help. He is currently following with a shipper/receiver at [facility]. He would like to see a shipper/receiver at [facility] due to location preference. Reports compliance with hydroxychloroquine and mycophenolate. 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 1. Little interest or pleasure in doing things: not at all 2. Feeling down, depressed, or hopeless: not at all 3. Trouble falling or staying asleep, or sleeping too much: not at all 4. Feeling tired or having little energy: not at all 5. Poor appetite or overeating: not at all 6. Feeling bad about yourself - or that you are a failure or have let yourself or your family down: not at all 7. Trouble concentrating on things, such as reading the newspaper or watching television: not at all 8. Moving or speaking so slowly that other people could have noticed. Or the opposite - being so fidgety or restless that you have been moving around a lot more than usual: not at all 9. Thoughts that you would be better off or of hurting yourself in some way: not at all Total score: 0 Depression Screening Interpretation: Negative Depression Screening Done: Yes Source: Developed by Drs. Joseluis Garcia, Yanique Robles, Tiago Chaudhry and colleagues, with an educational adwoa from [employer]. Thrive Questionnaire Date Thrive assessed: 02/15/25 I am a: Patient What is your living situation today?: I have a steady place to live Within the past 12 months, did the food you bought not last and you didn't have the money to get more?: I choose not to answer this question Within the past 12 months, did you worry whether your food would run out before you got money to buy more?: I choose not to answer this question Do you have trouble paying for medicines?: Yes Do you have trouble getting transportation to medical appointments?: No Do you have trouble paying your heating and electricity bill?: No Do you have trouble taking care of your child, family member or friend?: No Do you have trouble with day-to-day activities such as bathing, preparing meals, shopping, managing finances, etc.?: No Are you currently unemployed and looking for a job?: No Are you interested in more education?: No Please select the resources that you would like help with: Paying for medicine Currently or been in a relationship where the following occur: No concerns reported THRIVE Score: 0 AUDIT C Alcohol Use Questionnaire (AUDIT-C) 1. How often do you have a drink containing alcohol?: Never Total Score: 0 DEB-7 AMB Questionnaire DEB-7 Date DEB - 7 assessed: 02/15/25 Feeling nervous, anxious, or on edge: 0 = Not at all Not being able to stop or control worryin = Not at all Worrying too much about different things: 3 = Nearly every day Trouble relaxin = Several days Being so restless that it is hard to sit still: 0 = Not at all Becoming easily annoyed or irritable: 0 = Not at all Feeling afraid as if something awful might happen: 0 = Not at all Total DEB-7 score (0-4 normal; 5-9 mild; 10-14 moderate; 15-21 severe): 4 Source: Developed by Drs. Joseluis Garcia, Yanique Robles, Tiago Chaudhry and colleagues, with an educational adwoa from [employer]. Review of Systems Narrative As per HPI Physical exam (Primary Care) Vital Signs: Last Vital Signs Temp 97.1 F 02/15/25 13:45 Pulse 95 02/15/25 13:45 BP 116/74 02/15/25 13:45 Pulse Ox 97 02/15/25 13:45 Oxygen Delivery Method Room Air 02/15/25 13:45 General: Well-appearing, alert, oriented ?3, in no acute distress. Cardiovascular: RRR, S1-S2 appreciated, no murmurs, rubs or gallops. Respiratory: Lungs clear to auscultation bilaterally, no wheezes, rales or rhonchi. Abdomen: Soft, nontender, nondistended. Normoactive bowel sounds. Skin: Well demarcated, hypopigmented, scaly patch in middle/lower back. Melanocytic macules on lower lip Nails: Dystrophic, thickened bilateral toenails in all toes, with whitish discoloration. Nail plate shows irregular surface, subungual debris. maceration, fissuring and scaling between toes. No erythema, warmth or drainage suggestive of bacterial infection. BMI result Body Mass Index 27.1 Tobacco/Smoking Status: Tobacco use Status Tobacco use date assessed 02/15/25 02/15/25 13:49 Patient Tobacco Use Status Never used Tobacco 02/15/25 13:49 e-Cigarette/Vaping Use Never Used 02/15/25 13:49 PHQ-9: PHQ-9 Score PHQ-9: Total score 0 02/15/25 13:49 Depression Screening Interpretation: Negative Thrive Assessment: Date of Thrive Assessment Date Thrive assessed 02/15/25 02/15/25 13:49 Currently or been in a relationship where the following occur: No concerns reported Coding Level of Care Code Est Pt Level 4 (97818) Diagnoses Onychomycosis B35.1 Tinea versicolor B36.0 Systemic lupus erythematosus with lung involvement, unspecified SLE type M32.13 Systemic lupus erythematosus type: unspecified Systemic lupus erythematosus organ involvement: lung involvement Labial melanotic macule L81.8 Assessment & Plan Assessment & Plan (1) Onychomycosis: Code(s): B35.1 - Tinea unguium Category: Medical Plan: Dystrophic, thickened bilateral toenails in all toes, with whitish discoloration, and Nail plate showing irregular surface, subungual debris, consistent with onychomycosis. Given patient history of SLE currently on hydroxychloroquine and mycophenolate, terbinafine is not preferred as a medication as it carries a potential risk risk of medication induced lupus manifestations. -give ciclopirox 8% solution to apply to toenails once daily. Podiatry referral provided for further evaluation and possible need for debridement. (2) Tinea versicolor: Code(s): B36.0 - Pityriasis versicolor Category: Medical Plan: - apply ketoconazole cream to affected area once daily for 4 weeks. (3) Systemic lupus erythematosus: Code(s): M32.9 - Systemic lupus erythematosus, unspecified Category: Medical Qualifiers: Systemic lupus erythematosus type: unspecified Systemic lupus erythematosus organ involvement: lung involvement Qualified Code(s): M32.13 - Lung involvement in systemic lupus erythematosus Plan: -obtain blood work: CMP, CBC, and lipid panel - patient is currently following with a shipper/receiver at [facility]. He would like to see a shipper/receiver at [facility] due to location preference. Referral sent to [facility] rheumatology. (4) Labial melanotic macule: Code(s): L81.8 - Other specified disorders of pigmentation Plan: Patient with a couple of melanocytic macules on his lower lip. referral to Dermatology for further evaluation provided Orders: Orders Comprehensive Met. Panel Today M32.13 - Lung involvement in systemic lupus erythematosus Complete Blood Count Auto Diff Today M32.13 - Lung involvement in systemic lupus erythematosus Lipid Panel Today M32.13 - Lung involvement in systemic lupus erythematosus Referrals Podiatry Referral B35.1 - Tinea unguium Dermatology Referral K13.0 - Diseases of lips Rheumatology Referral M32.9 - Systemic lupus erythematosus, unspecified Medications: New ketoconazole 2% 1 appl topical DAILY 30 grams 0RF tinea versicolor 4 weeks ciclopirox 8% 1 appl topical BEDTIME 6.6 mL 0RF 12 weeks
[2025-02-15 13:45] VITALS: BP 116/74; PULSE 95; TEMP 36.2; O2SAT 97; BMI 27.1
--- OUTSIDE RECORDS SUMMARY | 2025-02-15 17:26 | XMS_ITS | Encounter Summary ---
Author Organization [facility] Address [address] [place] [address] Care Team Providers Care Employment And Claims Aide Name Role Phone Jarrett Powell Primary Care Provider [phone] Encounter Details Date Type Department Care Team ([facility] st Contact Info) Description 05/29/2022 Telephone [facility] Patient [facility] [address] [place] [id number] Telephone Intake, Staff Social History Tobacco Use Types Packs/Day Years Used Date Smoking Tobacco: Former Cigarettes 0.1 3 1 985 - 1987 Smokeless Tobacco: Never Comments:FORMERSOCIAL SMOKER QUITAGE 18 Alcohol Use Standard Drinks/Week Comments No 0 (1 standard drink = 0.6 oz pur e alcohol) Sex and Gender Information Value Date Recorded Sex Assigned at Male 06/05/2022 9:16 AM EST Legal Sex Male 11:28 AM EDT Gender Identity Male 06/05/2022 9:16 AM EST Sexual Orientation Straight 06/05/2022 9: 16 AM EST 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 CS was unable to reschedule for the patient because that block is blocked off. PT is unsure if this would by ok with Dr Reed and would like to request this apt be changed. PT will be traveling and will not be in the area. Thank you -Pac documented in this encounter Plan of Treatment Upcoming Encounters Date Type Department Care Team (Late st Contact Info) Description 03/08/2025 3:30 PM EST Office Visit [facility] Pulm Rheum [address] [place] [address] Rojelio Chadwick MD [address] [place] [address] 04/05/2025 11:30 AM EST Appointment [facility] Pulmonary Function Lab [address] [place] [address] 04/05/2025 2:20 PM EST Follow-Up [facility] Lung and Allergy Center [address] [place] [address] Head Pastry Chef: Rosangela Figueroa MD [address] [place] [address] documented as of this encounter Visit Diagnoses Not on filedocumented in this encounter Care Teams Employment And Claims Aide Relationship Specialty Start Date End Date Jarrett Powell [address] [place] [address] [place] [address] PCP - General Internal Medicine 02/16/17 documented as of this encounter
--- OUTSIDE RECORDS SUMMARY | 2025-02-15 17:26 | XMS_ITS | Clinical Summary ---
Author Organization [facility] Address [address] [address] Phone Care Team Providers Care Casino Host Name Role Phone Jarrett Powell MD Primary Care Provider [phone] Zarina Reed MD Unavailable Allergies No known active allergies Medications mycophenolate mofetil (CELLCEPT) 500 mg tablet Take 1,500 mg by mouth 2 (two) times a day. Active hydroxychloroqu ine (PLAQUENIL) 200 mg tablet Take 1 tablet by mouth 2 (two) times a day. 01/23/2023 Active docusate sodium (COLACE) 100 MG capsule Take 1 capsule (100 mg total) by mouth 2 (two) times a day as needed for mild constipation . 30 capsule 04/06/2023 Active senna (SENOKOT) 8.6 mg tablet Take 1 tablet by mouth daily as needed for constipation . 20 tablet 04/06/2023 Active oxyCODONE 5 MG immediate release tablet Take 1 tablet (5 mg total) by mouth every 4 (four) hours as needed. Partial fill ok 30 tablet 04/14/2023 Active Active Problems Problem Noted Date Diagnosed Date Interstitial lung disease 06/01/2017 Raynaud's phenomenon (secondary) 03/26/2017 SLE (systemic lupus erythematosus) 02/19/2017 Overview (04/01/2023): KHALIDA 1:1280 speckled, 1: 160 nucleolar Anti-Matute 3.3, negative RPR, chromatin 1.6, double-stranded DNA 1 Negative antibodies to histone, SSA, SSB, RF Hypocomplementemia. C3 36 mg/dL, C4 6 mg/dL Negative antiphospholipid antibodies Prednisone started approx July 2016, 10 mg bid, increased to 15 mg bid. Discontinued September [address]: LN bx axillary October 2016 [facility] Sweats Hypergammaglobulinemia +anti DS DNA crithidaie 1:20 Plaquenil Feb 2017- MMF May 2017. Increased to 3 gms summer 2018 Mild proteinuria Last Assessment & Plan: I did not have his full records, but he had a high titer KHALIDA, > 1, 280 and antibodies to Matute/SANDBLASTER PAINT SPRAYER, negative anti DS DNA antibodies, normal C3 and C4, inflammatory arthritis, LN, sweats, transient hematuria. The arthritis responds to prednisone. I told him he most likely had SLE. Only his left middle finger is swollen today, but he reports swelling in multiple joints in the past. I gave the Yosi's information about hydroxychloroquine. We went over the side effects, slow onset of action, need for ophthalmologic monitoring. I clearly need to get more records. Methotrexate would be another option, but he had an abnormal chest CT, which I will need to obtain Social History Tobacco Use Types Packs/Day Years Used Date Smoking Tobacco: Never Smokeless Tobacco: Never Alcohol Use Standard Drinks/Week Comments Not Currently 2 (1 standard drink = 0.6 oz pur e alcohol) Education Answer Date Recorded Are you interested in more education? Not on alexander e 01/16/2023 Are you concerned about learning? Not on file 01/16/2023 No 01/16/2023 No 01/16/2023 Digital Access Answer Date Recorded No 01/16/2023 No 01/16/2023 Reliable internet access at home? Not on file 01/16/2023 Device with a working camera? Not on file Intimate Partner Violence Answer Date R ecorded Are you denied basic needs s uch as food, clothing, or medical care? Deferred 04/06/2023 In the past 12 months have y ou been in a relationship with a person who hurts, threatens, or tries to control you? Deferred 04/06/2023 Are you denied basic needs s uch as food, clothing, or medical care? Deferred 04/06/2023 In the past 12 months have y ou been in a relationship with a person who hurts, threatens, or tries to control you? Deferred 04/06/2023 Sex and Gender Information Value Date Recorded Sex Assigned at Male 01/15/2023 1:47 PM EDT Legal Sex Male 1:38 PM EDT Gender Identity Male 01/15/2023 1:47 PM EDT Sexual Orientation Straight 01/15/2023 1: 47 PM EDT Last Filed Vital Signs Vital Sign Reading Time Taken Comments Blood Pressure 139/81 04/06/2023 6:10 PM EST Pulse 74 04/06/2023 6:10 PM EST Temperature 35.9 C (96.7 F) 04/06/2023 6:10 PM EST Respiratory Rate 18 04/06/2023 6:10 PM EST Oxygen Saturation 97% 04/06/2023 6:10 PM EST Inhaled Oxygen Concentration - - Weight 74.8 kg (165 lb) 04/06/2023 11:37 AM EST Height 170.2 cm (5' 7 ) 04/06/2023 11:37 AM EST Body Mass Index 25.84 04/06/2023 11:37 AM EST Plan of Treatment Health Maintenance Due Date Last Done Comments Adult Td,Tdap Booster 1970 LIPID PANEL 1970 DEPRESSION SCREENING 1980 HEPATITIS C SCREENING 1986 HIV ONE-TIME SCREENING (18-65 YEARS) 1986 ZOSTER VACCINES (1 of 2) 11/30/1987 COLOGUARD 2013 COLONOSCOPY 2013 COLORECTAL CANCER SCREENING 2013 FIT TEST 2013 FOBT 2013 SIGMOIDOSCOPY 2013 VIRTUAL COLONOSCOPY 2013 RSV VACCINE (1 - Risk 50-74 years 1-dose series) 2018 COVID-19 VACCINE (3 - Pfizer risk series) 04/06/2022 03/09/2022, 02/15/2022 INFLUENZA VACCINE (#1) 2024 , 03/24/2019, 03/09/2018, Additional history exists PNEUMOCOCCAL VACCINES (50+ years) (3 of 3 - PPSV23, PCV20 or PCV21) 07/11/2025 07/11/2020, 10/12/2018 SCREENING FOR DIABETES 04/06/2026 04/06/2023 SMOKING STATUS SCREENING (Once After 26 Yrs) Completed 04/06/2023 HEPATITIS A VACCINES Aged Out No long er eligible based on patient's age to complete this topic HIB VACCINES Aged Out No longer eligi ble based on patient's age to complete this topic MENINGOCOCCAL VACCINES (ACWY) Aged Out No longer eligible based on patient's age to complete this topic MENINGOCOCCAL VACCINES (B) Aged Out N o longer eligible based on patient's age to complete this topic Medical Devices Implanted Type Area Executive Community Planning Device Identifier Shelf Expiration Date Model / Serial / Lot System Proximal Tenodesis Implant Kit - [id number] Implanted:Qty: 1 on 04/06/2023 by Trav Klein MD at [facility] Right: Shoulder [employer] 11/18/2027 [id number] / / [id number] [place] Suture 4.66s00cm Biocomposite Swivelock Double Loaded Bx/5ea - [id number] Implanted:Qty: 2 on 04/06/2023 by Trav Klein MD at [facility] Right: Shoulder [employer] 01/17/2025 [id number] -[id number] / / [id number] Insurance HMO HMO O Member Subscriber Plan / Payer (Ef fective 2024-Present) Name:Bob Deluca Relation to Subscriber:Self Name:Bob Deluca Payer ID:Not on file Type:HMO Address: [place] [id number] [place] [address] HMO Member Subscriber Plan / Payer (Ef fective 2024-Present) Name:YosiBob Relation to Subscriber:Self Name:Yosi Bob Payer ID:Not on file Type:HMO Address: [place] [id number] WORKERS COMPENSATION Advance Directives For more information, please contact: [phone] (9AM - 5PM [facility], Thursday-Thursday) Documents on File Type Date Recorded Patient Air Pollution Auditor Expl anation Healthcare Proxy 04/07/2023 5:33 PM Care Teams Casino Host Relationship Specialty Start Date End Date Jarrett Powell MD [address] [place] [address] Dr Sheikh [address] [place] [address] PCP - General Internal Medicine 01/15/23 Zarina Reed MD [address] [place] [address] Rheumatology 04/02/23 Additional Source Comments The information contained in this document represents components of the legal health record. It is not the complete legal health record.[facility]
--- OUTSIDE RECORDS SUMMARY | 2025-02-15 17:26 | XMS_ITS | Encounter Summary ---
Author Organization [facility] Address [address] [place] [address] Phone Care Team Providers Care Emission Technician Name Role Phone Jarrett Powell MD Primary Care Provider [phone] Zarina Reed MD Unavailable [phone] Encounter Details Date Type Department Care Team (Late st Contact Info) Description 04/06/2023 Procedure Pass [facility] [address] [place] [id number] Social History Tobacco Use Types Packs/Day Years [...] Orientation Straight 01/15/2023 1: 47 PM EDT documented as of this encounter Plan of Treatment Not on file documented as of this encounter Visit Diagnoses Not on filedocumented in this encounter Care Teams Emission Technician Relationship Specialty Start Date End Date Jarrett Powell MD [address] [place] [address] [place] [address] PCP - General Internal Medicine 01/15/23 Zarina Reed MD [address] [place] [address] Rheumatology 04/02/23 documented as of this encounter Additional Source Comments The information contained in this document represents components of the legal health record. It is not the complete legal health record.[facility]
--- OUTSIDE RECORDS SUMMARY | 2025-02-15 17:26 | XMS_ITS | Clinical Summary ---
Author Organization [facility] ity Address [address] [place] [address] Care Team Providers Care Outside Sales Account Executive Name Role Phone Unavailable Primary Care Provider Unavailabl e Social History Tobacco Use Types Packs/Day Years Used Date Smoking Tobacco: Never Assessed Sex and Gender Information Value Date Recorded Sex Assigned at Not on file Legal Sex Male 4:49 PM EDT Gender Identity Not on file Sexual Orientation Not on file Plan of Treatment Health Maintenance Due Date Last Done Comments Colorectal Cancer Screening: Colonoscopy 1968 DTaP,Tdap,and Td Vaccines (1 - Tdap) 11/30/1987 Hepatitis B Vaccines (1 of 3 - 19+ 3-dose series) 11/30/1987 Pneumococcal Vaccine: 50+ Ye ars (1 of 1 - PCV) 2018 Zoster Vaccines (1 of 2) 2018 Cholesterol Screening (Lipid Panel) 11/18/2023 HIV Screening 11/18/2023 Hepatitis C Screening 11/18/2023 Social Influencers of Health Screening 11/18/2023 Depression Screening 04/20/2024 COVID-19 Vaccine (1 - 2023-2 5 season) 2024 Influenza Vaccine (#1) 2024 RSV Immunization Adult Patie nts (1 - 1-dose 75+ series) 11/30/2043 HIB Vaccines Aged Out No longer eligi ble based on patient's age to complete this topic HPV Vaccines Aged Out No longer eligi ble based on patient's age to complete this topic Hepatitis A Vaccines Aged Out No long er eligible based on patient's age to complete this topic IPV Vaccines Aged Out No longer eligi ble based on patient's age to complete this topic MMR Vaccines Aged Out No longer eligi ble based on patient's age to complete this topic Meningococcal ACWY Vaccine Aged Out N o longer eligible based on patient's age to complete this topic Meningococcal B Vaccine Aged Out No l onger eligible based on patient's age to complete this topic RSV Immunization Patients Un zeferino 20 months Aged Out No longer eligible b ased on patient's age to complete this topic Varicella Vaccines Aged Out No longer eligible based on patient's age to complete this topic
--- OUTSIDE RECORDS SUMMARY | 2025-02-15 17:26 | XMS_ITS | Clinical Summary ---
Author Organization [facility] Address [address] [place] [address] Care Team Providers Care Hiv Prevention Specialist Name Role Phone Unavailable Primary Care Provider Unavailabl e Social History Tobacco Use Types Packs/Day Years Used Date Smoking Tobacco: Never Assessed Sex and Gender Information Value Date Recorded Sex Assigned at Male 06/25/2023 11:11 AM EST Gender Identity Not on file Sexual Orientation Not on file Job Start Date Occupation Industry Not on file Not on file Not on file Plan of Treatment Health Maintenance Due Date Last Done Comments Hepatitis B Vaccines (1 of 3 - 3-dose series) 1968 02/24/2018, 10/09/2017, 08/24/2017 Hepatitis C Screening 1968 Depression Screening 1980 Preventative Health Evaluation 1986 DTap / Tdap / Td (1 - Tdap) 11/30/1987 Colon Cancer Screening (Colonoscopy) 2013 Shingrix-Zoster Vaccine (1 of 2) 2018 COVID-19 Vaccine (2 - season) 2024 02/15/2022 Influenza Vaccine (#1) 2024 2, 03/24/2019, 03/09/2018, Additional history exists Pneumococcal Vaccine Aged Out 07/11/2020, 10/13/19 19 No longer eligible based on patient's age to complete this topic RSV Ped < 20 months Aged Out No longe r eligible based on patient's age to complete this topic
--- OUTSIDE RECORDS SUMMARY | 2025-02-15 17:26 | XMS_ITS ---
Author Name [facility] Organization Unknown Problems Problem Status Onset Date Problem Type Date of Resolution Source Pain in unspecified shoulder active EncounterDiagnosisAct CT_THM [facility] Encounters Encounter Type Encounter Reason Primary Diagnosis Location Date Ambulatory Pain in unspecified shoulder Pain in unspecified shoulder [facility] 10/19/2023 Ambulatory Pain in unspecified shoulder Pain in unspecified shoulder [facility] 10/15/2023 Ambulatory Pain in unspecified shoulder Pain in unspecified shoulder [facility] 10/13/2023 Ambulatory Pain in unspecified shoulder Pain in unspecified shoulder [facility] 10/09/2023 Ambulatory Pain in unspecified shoulder Pain in unspecified shoulder [facility] 10/08/2023 Ambulatory Pain in unspecified shoulder Pain in unspecified shoulder [facility] 10/01/2023 Ambulatory Pain in unspecified shoulder Pain in unspecified shoulder [facility] 09/28/2023 Ambulatory Pain in unspecified shoulder Pain in unspecified shoulder [facility] 09/24/2023 Ambulatory Pain in unspecified shoulder Pain in unspecified shoulder [facility] 09/22/2023 Ambulatory Pain in unspecified shoulder Pain in unspecified shoulder [facility] 09/17/2023 Ambulatory Pain in unspecified shoulder Pain in unspecified shoulder [facility] 09/17/2023 Ambulatory Pain in unspecified shoulder Pain in unspecified shoulder [facility] 09/08/2023 Ambulatory Pain in unspecified shoulder Pain in unspecified shoulder [facility] 09/03/2023 Ambulatory Pain in unspecified shoulder Pain in unspecified shoulder [facility] 09/01/2023 Ambulatory Pain in unspecified shoulder Pain in unspecified shoulder [facility] 08/27/2023 Ambulatory Pain in unspecified shoulder Pain in unspecified shoulder [facility] 08/20/2023 Ambulatory Pain in unspecified shoulder Pain in unspecified shoulder [facility] 08/18/2023 Ambulatory Pain in unspecified shoulder Pain in unspecified shoulder [facility] 08/13/2023 Ambulatory Pain in unspecified shoulder Pain in unspecified shoulder [facility] 08/11/2023 Ambulatory Pain in unspecified shoulder Pain in unspecified shoulder [facility] 08/06/2023 Ambulatory Pain in unspecified shoulder Pain in unspecified shoulder [facility] 08/04/2023 Ambulatory Pain in unspecified shoulder Pain in unspecified shoulder [facility] 07/28/2023 Ambulatory Pain in unspecified shoulder Pain in unspecified shoulder [facility] 07/23/2023 Ambulatory Pain in unspecified shoulder Pain in unspecified shoulder [facility] 07/21/2023 Ambulatory Pain in unspecified shoulder Pain in unspecified shoulder [facility] 07/16/2023 Ambulatory Pain in unspecified shoulder Pain in unspecified shoulder [facility] 07/14/2023 Ambulatory Pain in unspecified shoulder Pain in unspecified shoulder [facility] 07/09/2023 Ambulatory Pain in unspecified shoulder Pain in unspecified shoulder [facility] 07/06/2023 Ambulatory Pain in unspecified shoulder Pain in unspecified shoulder [facility] 07/02/2023 Ambulatory Pain in unspecified shoulder Pain in unspecified shoulder [facility] 06/29/2023 Care Team Organization Name Specialty Phone Email Start Date End Da juanito [facility] 02/29/2024 [facility] 02/27/2024 [facility] 07/05/2023 [facility] 06/29/2023 11/01/2024
--- OUTSIDE RECORDS SUMMARY | 2025-02-15 17:26 | XMS_ITS | Clinical Summary ---
Author Organization [facility] Address [address] [place] [address] Care Team Providers Care Reroller Hand Name Role Phone Jarrett Powell Primary Care Provider [phone] Allergies No known active allergies Medications ibuprofen (MOTRIN) 800 mg tablet Take 800 mg by mouth every 8 hours as needed. 01/25/2021 Active mycophenolate (CELLCEPT) 500 mg tablet Take 3 tablets (1,500 mg total) by mouth 2 times a day. 540 tablet 1 09/16/2024 Active hydroxychloroqu ine (PLAQUENIL) 200 mg tablet Take 1 tablet (200 mg total) by mouth 2 times a day. 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 Nonspecific subpleural reticular groundglass opacities in the upper lobes and lower lobes. A few calcified granulomas. Lymph node right middle lobe pleural- based, question right middle lobe nodule or lymph node. No pericardial effusion. Bilateral axillary lymphadenopathy. Nonspecific peripheral groundglass and reticular opacities are suggestive of active interstitial disease process in both lungs SLE (systemic lupus erythematosus) 02/19/2017 Overview (11/27/2021): KHALIDA 1:1280 speckled, 1: 160 nucleolar Anti-Matute 3.3, negative RPR, chromatin 1.6, double-stranded DNA 1 Negative antibodies to histone, SSA, SSB, RF Hypocomplementemia. C3 36 mg/dL, C4 6 mg/dL Negative antiphospholipid antibodies Prednisone started approx July 2016, 10 mg bid, increased to 15 mg bid. Discontinued September [address]: LN bx axillary October 2016 [facility] Sweats Hypergammaglobulinemia +anti DS DNA crithidaie 1:20 Plaquenil Feb 2017- MMF May 2017. Increased to 3 gms summer 2018 Mild proteinuria Assessment & Plan (02/19/2017 9:49 PM EDT): I did not have his full records, but he had a high titer KHALIDA, > 1, 280 and antibodies to Matute/FOCUS PULLER, negative anti DS DNA antibodies, normal C3 [...] CT, which I will need to obtain Lymphadenopathy, axillary 02/19/2017 Overview (02/19/2017): S/p left axillary LN excision 10/08/2016 Abnormal PFT Resolved Problems Problem Noted Date Diagnosed Date Resolved Date Current chronic use of systemic steroids 12/08/2017 06/26/2021 Encounters Date Type Department Care Team Description 11/17/2024 Yadiohart Message [facility] [address] [place], [place] [id number] Paper Tube Grader: Sloane Herbert LPN Medication from Last 3 Months Immunizations Immunization Administration Dates Next Due Covid-19, Pfizer, mRNA, Eddy valent, PF, 30 mcg/0.3 mL dose, terri-sucrose (COMIRNATY)(for ages 12 and older) 03/09/2022,02/15/2022 Hepatitis B Vaccine, Pediatr ic or Pediatric/Adolescent Dosage 02/24/2018,10/09/2017,08/24/2017 INFLUENZA, SPLIT VIRUS, TRIVALENT, PF 05/27/2024 Influenza, Injectable, Quadr ivalent, Preservative Free 01/22/2022,03/24/2019,03/09/2018,02/19 Pneumococcal Conjugate Vacci ne, 13 Valent 10/12/2018 Pneumococcal Polysaccharide Vaccine, 23 Valent 07/11/2020 Family History Medical History Relation Name Comments HIV Brother Congenital heart disease Daughter Relation Name Status Comments Brother Daughter Alive Social History Tobacco Use Types Packs/Day Years Used Date Smoking Tobacco: Former Cigarettes 0.1 3 1 5 - 1987 Passive Smoke Exposure: Past Smokeless Tobacco: Never Tobacco Cessation:Counseling Given: Not Answered Comments:FORMERSOCIAL SMOKER QUITAGE 18 Alcohol Use Standard [...] file Not on file Not on file Last Filed Vital Signs Vital Sign Reading Time Taken Comments Blood Pressure 131/76 08/24/2024 4:03 PM EDT Pulse 87 08/24/2024 4:03 PM EDT Temperature 36.4 C (97.5 F) 06/01/2024 4:16 PM EST Respiratory Rate 18 08/24/2024 4:03 PM EDT Oxygen Saturation 99% 08/24/2024 4:03 PM EDT Inhaled Oxygen Concentration - - Weight 78 kg (172 lb) 06/01/2024 4:16 PM EST Height 170.2 cm (5' 7 ) 06/01/2024 4:16 PM EST Body Mass Index 26.94 06/01/2024 4:16 PM EST Plan of Treatment Upcoming Encounters Date Type Department Care Team (Late st Contact Info) Description 03/08/2025 3:30 PM EST Office Visit [facility] Pulm Rheum [address] [place] [phone] Rojelio Chadwick MD [address] [place] [address] 04/05/2025 11:30 AM EST Appointment [facility] Pulmonary Function Lab [address] [place] [phone] 04/05/2025 2:20 PM EST Follow-Up [facility] Lung [facility] Allergy [facility] [address] [place] [phone] Paper Tube Grader: Rosangela Figueroa MD [address] [place] [phone] Health Maintenance Due Date Last Done Comments Cologuard 1968 Colon Cancer Screening 1968 Colonoscopy 1968 FOBT / Fit Test 1968 HIV Screening 1968 Hepatitis C Screening 1968 Sigmoidoscopy 1968 Hepatitis B Vaccines (1 of 3 - 19+ 3-dose series) 11/30/1987 02/24/2018, 10/09/2017, 08/24/2017 Zoster Vaccines (1 of 2) 11/30/1987 DTaP,Tdap,and Td Vaccines (1 - Tdap) 1990 COVID-19 Vaccine (3 - Pfizer risk series) 04/06/2022 03/09/2022, 02/15/2022 Alcohol/Substance Use Screening 04/20/2024 Depression Screening and Follow-Up 04/20/2024 Social Drivers of Health Rosy ual Screening 04/20/2024 Influenza Vaccine (#1) 2024 , 01/22/2022, 03/24/2019, Additional history exists Pneumococcal Vaccine: 50+ Ye ars (3 of 3 - PCV20 or PCV21) 07/11/2025 07/11/2020, 10/12/2018 Diabetes Screening 06/01/2027 06/01/2024, 0 07/30/2023, 01/22/2022, Additional history exists RSV Vaccine (60+ years old a nd patients) (1 - 1-dose 75+ series) 11/30/2043 Procedures * Due to [place] PEMRED law, this organization might not be sharing negative HIV tests. Procedure Name Priority Date/Time Associated Diagnosis Comments COMPREHENSIVE METABOLIC PANEL Routine 06/01/2024 5:31 PM EST Other systemic lupus erythematosus with lung involvement from Last 3 Months or Most Recently Relevant to Health Maintenance Results * Due to [place] PEMRED law, this organization might not be sharing negative HIV tests. * (ABNORMAL) Comprehensive metabolic panel (06/01/2024 5:31 PM EST) NA 138 135 - 145 mmol/L 06/01/2024 6:35 PM EST [facility] K 3.9 3.5 - 5.3 mmol/L 06/01/2024 6:35 PM EST [facility] Cl 102 98 - 107 mmol/L 06/01/2024 6:35 PM [facility] CO2 27 22 - 32 mmol/L 06/01/2024 6:35 PM [facility] Anion Gap 9 5 - 15 06/01/2024 6:35 PM EST [facility] Glucose 85 65 - 99 mg/dL 06/01/2024 6:35 PM EST [facility] Creatinine 1.01 0.60 - 1.30 mg/dL 06/01/2024 6:35 PM EST [facility] Calcium 9.3 8.6 - 10.5 mg/dL 06/01/2024 6:35 PM [facility] Total Protein 7.9 6.0 - 8.0 g/dL 06/01/2024 6:35 PM EST [facility] Albumin 4.2 3.5 - 5.2 g/dL 06/01/2024 6:35 PM [facility] Bilirubin, Total 0.2 0.2 - 1.2 mg/dL 06/01/2024 6:35 PM [facility] Alkaline Phosphatase 91 35 - 129 U/L 06/01/2024 6:35 PM EST [facility] AST 18 10 - 40 U/L 06/01/2024 6:35 PM EST [facility] ALT <5(L) 10 - 40 U/L 06/01/2024 6:35 PM EST [facility] BUN 14 7 - 23 mg/dL 06/01/2024 6:35 PM EST [facility] eGFR 88 >=60 mL/min/1. 73m2 06/01/2024 6:35 PM EST [facility] Comment:The estimated glomer ular filtration rate (eGFR) is calculated using a new formula developed by the NKF-ASN task force to eliminate race-based correction factors. The new formula uses serum/plasma creatinine, age, and gender to determine eGFR. A value below 60mls/min might indicate kidney disease and will be flagged. For additional information, see Berto et al, Am J Kidney Dis. 2021;79(2):268- 288, A Unifying Approach for GFR estimation: Recommendations of the NKF-ASN Task Force on Reassessing the Inclusion of Race in Diagnosing Kidney Disease . Globulin, Total 3.7 2.1 - 4.2 g/dL 06/01/2024 6:35 PM EST [facility] A/G Ratio 1.1(L) 1.5 - 3.0 06/01/2024 6:35 PM EST [facility] Blood Structure of peripheral vein / Unknown Venipuncture / Unknown 06/01/2024 5:31 PM EST 06/01/2024 5:59 PM EST us Zarina Reed MD LAB BLOOD ORDERABLES Final Resul t [facility] [address] [place] [address], [place] from Last 3 Months or Most Recently Relevant to Health Maintenance Insurance [employer] Care Teams Reroller Hand Relationship Specialty Start Date End Date Jarrett Powell [address] [place] [address] [place] [address] PCP - General Internal Medicine 02/16/17
== END 2025-02-15 14:28 | disposition home or self-care (01) ==
LOC: HO.HMCH 13:41
PROVIDERS: PCP Internal Medicine; Visit Provider Student in an Organized Health Care Education/Training Program
DX: B35.1 Tinea unguium (principal); B36.0 Pityriasis versicolor; M32.13 Lung involvement in systemic lupus erythematosus; L81.8 Other specified disorders of pigmentation

== ENCOUNTER 2025-02-18 10:48 | Outpatient (REF) | payer OTHER, SELFPAY ==
--- OUTSIDE RECORDS SUMMARY | 2025-02-18 10:51 | XMS_ITS | Clinical Summary ---
Author Organization [facility] ity Address [address] [place] [address] Care Team Providers Care Web Content Editor Name Role Phone Unavailable Primary Care Provider [...]
--- OUTSIDE RECORDS SUMMARY | 2025-02-18 10:51 | XMS_ITS | Clinical Summary ---
Author Organization [facility] Address [address] [place] [address] Care Team Providers Care Toppiece Cutter Name Role Phone Unavailable Primary Care Provider [...]
--- OUTSIDE RECORDS SUMMARY | 2025-02-18 10:51 | XMS_ITS | Clinical Summary ---
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 Increased to 3 gms summer 2018 Mild proteinuria Assessment & Plan (02/19/2017 9:49 PM EDT): I did not have his full records, but he had a high titer KHALIDA, > 1, 280 and antibodies to Matute/CASH CHECKER, negative anti DS DNA antibodies, normal C3 [...] chronic use of systemic steroids 12/08/2017 06/26/2021 Immunizations Immunization Administration Dates Next Due Covid-19, Pfizer, mRNA, [place] valent, PF, 30 mcg/0.3 mL dose, terri-sucrose [...] Former Cigarettes 0.1 3 1 985 - 1988 Passive Smoke Exposure: Past Smokeless Tobacco: Never [...] Description 03/08/2025 3:30 PM EST Office Visit [facility] Pulm Rheum [address] [place] [phone] Rojelio Chadwick MD [address] [place] [phone] 04/05/2025 11:30 AM EST Appointment [facility] Pulmonary Function Lab [address] [place] [address] 04/05/2025 2:20 PM EST Follow-Up [facility] [address] [place] [address] Funeral Greeter: Rosangela Figueroa MD [address] [place] [address] Health Maintenance Due Date Last Done Comments [...] 75+ series) 11/30/2043 Procedures * Due to [place] state law, this organization might not be sharing negative HIV tests. Procedure Name Priority Date/Time Associated Diagnosis Comments COMPREHENSIVE METABOLIC PANEL Routine 06/01/2024 5:31 PM EST Other systemic lupus erythematosus with lung involvement from Last 3 Months or Most Recently Relevant to Health Maintenance Results * Due to [place] state law, this organization might not be sharing negative HIV tests. * (ABNORMAL) Comprehensive metabolic panel (06/01/2024 5:31 PM EST) NA 138 135 - 145 mmol/L 06/01/2024 6:35 PM EST [facility] K 3.9 3.5 - 5.3 mmol/L 06/01/2024 6:35 PM EST [facility] Cl 102 98 - 107 mmol/L 06/01/2024 6:35 PM [facility] CO2 27 22 - 32 mmol/L 06/01/2024 6:35 PM [facility] Anion Gap 9 5 - 15 06/01/2024 6:35 PM [facility] Glucose 85 65 - 99 mg/dL 06/01/2024 6:35 PM [facility] Creatinine 1.01 0.60 - 1.30 mg/dL 06/01/2024 6:35 PM [facility] Calcium 9.3 8.6 - 10.5 mg/dL 06/01/2024 6:35 PM [facility] Total Protein 7.9 6.0 - 8.0 g/dL 06/01/2024 6:35 PM [facility] Albumin 4.2 3.5 - 5.2 g/dL 06/01/2024 6:35 PM [facility] Bilirubin, Total 0.2 0.2 - 1.2 mg/dL 06/01/2024 6:35 PM [facility] Alkaline Phosphatase 91 35 - 129 U/L 06/01/2024 6:35 PM [facility] AST 18 10 - 40 U/L 06/01/2024 6:35 PM [facility] ALT <5(L) 10 - 40 U/L 06/01/2024 6:35 PM EST [facility] BUN 14 7 - 23 mg/dL 06/01/2024 6:35 PM EST [facility] eGFR 88 >=60 mL/min/1. 73m2 06/01/2024 6:35 PM EST [facility] Comment:The estimated glomer ular filtration rate (eGFR) is calculated using a new formula developed by the NKF-ASN task force to eliminate race-based correction factors. The new formula uses serum/plasma creatinine, age, and gender to determine eGFR. A value below 60mls/min might indicate kidney disease and will be flagged. For additional information, see Thomson et al, Am J Kidney Dis. 2021;79(2):268- 288, A Unifying Approach for GFR estimation: Recommendations of the NKF-ASN Task Force on Reassessing the Inclusion of Race in Diagnosing Kidney Disease . Globulin, Total 3.7 2.1 - 4.2 g/dL 06/01/2024 6:35 PM EST [facility] A/G Ratio 1.1(L) 1.5 - 3.0 06/01/2024 6:35 PM EST [facility] Blood Structure of peripheral vein / Unknown Venipuncture / Unknown 06/01/2024 5:31 PM EST 06/01/2024 5:59 PM EST us Zarina Reed MD LAB BLOOD ORDERABLES Final Resul t [facility] [address] [place] [address], [place] from Last 3 Months or Most Recently Relevant to Health Maintenance Insurance [facility] Care Teams Suspender Maker Relationship Specialty Start Date End Date Jarrett Powell [address] [place] [address] dr Marli Calles, [place] [phone] PCP - General Internal Medicine 02/16/17
--- OUTSIDE RECORDS SUMMARY | 2025-02-18 10:51 | XMS_ITS | Encounter Summary ---
Author Organization [facility] Address [address] [place] [address] Phone Care Team Providers Care Recovery Operator Helper Name Role Phone Jarrett Powell MD Primary Care Provider [phone] Zarina Reed MD Unavailable [phone] Encounter Details Date Type Department Care Team (Late st Contact Info) Description 04/06/2023 Procedure Pass [facility] [place] [facility] [address] [place] [phone] Social History Tobacco Use Types Packs/Day Years [...] on filedocumented in this encounter Care Teams Recovery Operator Helper Relationship Specialty Start Date End Date Jarrett Powell MD [address] [place] [address] [place] [address] PCP - General Internal Medicine 01/15/23 Zarina Reed MD [address] [place] [address] Rheumatology 04/02/23 documented as of this encounter Additional Source Comments The information contained in this document represents components of the legal health record. It is not the complete legal health record.[facility]
--- OUTSIDE RECORDS SUMMARY | 2025-02-18 10:51 | XMS_ITS | Clinical Summary ---
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 Increased to 3 gms summer 2018 Mild proteinuria Last Assessment & Plan: I did not have his full records, but he had a high titer KHALIDA, > 1, 280 and antibodies to Matute/HOUSEKEEPING AIDE, negative anti DS DNA antibodies, normal C3 [...] this topic Medical Devices Implanted Type Area Machine Tank Operator Device Identifier Shelf Expiration Date Model / Serial / Lot System Proximal Tenodesis Implant Kit - [id number] Implanted:Qty: 1 on 04/06/2023 by Trav Klein MD at [facility] Right: Shoulder [employer] 11/18/2027 AR-2290 / / [id number] [place] Suture [id number] Biocomposite Swivelock Double Loaded Bx/5ea - [id number] Implanted:Qty: 2 on 04/06/2023 by Trav Klein MD at [facility] Right: Shoulder [employer] 01/17/2025 [id number] / / [id number] Insurance HMO HMO O Member Subscriber Plan / Payer (Ef fective 2024-Present) Name:Bob Deluca Relation to Subscriber:Self Name:Bob Deluca Payer ID:Not on file Type:HMO Address: [place] [id number] [place] [id number] HMO Member Subscriber Plan / Payer (Ef fective 2024-Present) Name:YosiBob Relation to Subscriber:Self Name:Yosi Bob Payer ID:Not on file Type:HMO Address: [place] [id number] WORKERS COMPENSATION Advance Directives For more information, please contact: [phone] (9AM - 5PM [facility], Thursday-Thursday) Documents on File Type Date Recorded Patient Silk Snapper Expl anation Healthcare Proxy 04/07/2023 5:33 PM Care Teams Surg Nurse Relationship Specialty Start Date End Date Jarrett Powell MD [address] [place] [address] Dr Sheikh [address] [place] [address] PCP - General Internal Medicine 01/15/23 Zarina Reed MD [address] [place] [address] Rheumatology 04/02/23 Additional Source Comments The information contained in this document represents components of the legal health record. It is not the complete legal health record.[facility]
--- OUTSIDE RECORDS SUMMARY | 2025-02-18 10:51 | XMS_ITS | Encounter Summary ---
Author Organization [facility] Address [address] [place] [address] Care Team Providers Care Clamp Carrier Operator Name Role Phone Jarrett Powell Primary Care Provider [phone] Encounter Details Date Type Department Care Team ([facility] st Contact Info) Description 05/29/2022 Telephone [facility] Patient Access Center [address] [place] [address] Telephone Intake, Staff Social History Tobacco Use [...] Description 03/08/2025 3:30 PM EST Office Visit [facility] Pulm Rheum [address] [place] [address] Rojelio Chadwick MD [address] [place] [address] 04/05/2025 11:30 AM EST Appointment [facility] Pulmonary Function Lab [address] [place] [address] 04/05/2025 2:20 PM EST Follow-Up [facility] Lung and Allergy Center [address] [place] [address] Batterboard Setter: Rosangela Figueroa MD [address] [place] [address] documented as of this encounter Visit Diagnoses Not on filedocumented in this encounter Care Teams Clamp Carrier Operator Relationship Specialty Start Date End Date Jarrett Powell [address] [place] [address] [place] [address] PCP - General Internal Medicine 02/16/17 documented as of this encounter
[2025-02-18 10:55] LABS: MANUAL DIFF FLAG NO
[2025-02-18 11:01] LABS: Hematocrit 41.1 % (42.0-52.0); Hemoglobin 13.3 g/dl (14.0-18.0); Imm Gran Abs Auto 0.03 X10*3/uL (0.00-0.03); Imm Gran Pct Auto 0.4 % (0.0-0.4); Lymphocytes Absolute Auto 2.9 X10*3/uL (1.2-4.9); Mean Corpuscular HGB Conc 32.4 g/dl (31.0-36.0); Mean Corpuscular Hemoglobin 28.6 pg (27.0-33.0); Mean Corpuscular Volume 88.4 fL (80.0-98.0); NRBC Abs Auto 0.000 X10*3/uL (0.0-0.012); NRBC Pct Auto 0.0 /100WBC (0.0-0.2); Platelet Count 390 X10*3/uL (160-400); Red Blood Count 4.65 X10*6/uL (4.60-5.80); White Blood Count 7.1 X10*3/uL (4.8-10.8)
[2025-02-18 11:18] LABS: Alanine Aminotransferase 13 U/L (0-40); Albumin Level 4.5 g/dL (3.5-5.0); Alkaline Phosphatase 90 U/L (39-117); Anion Gap 11 (12-20); Aspartate Amino Transferase 27 U/L (5-37); Blood Urea Nitrogen 15 mg/dL (9-16); Calcium 9.1 mg/dL (8.4-10.2); Carbon Dioxide 28 mmol/L (22-29); Chloride 104 mmol/L (96-108); Cholesterol 168 mg/dL (<200); Estimated Glomerular Filt Rate > 60; HDL Cholesterol 48 mg/dL (>40); Potassium 4.1 mmol/L (3.3-5.1); Sodium 139 mmol/L (135-145); Total Protein 8.1 g/dL (6.5-8.0); Triglycerides 53 mg/dL (<150)
== END 2025-02-18 10:49 | disposition home or self-care (01) ==
LOC: HO.LAB 10:48
PROVIDERS: PCP Internal Medicine; Visit Provider Student in an Organized Health Care Education/Training Program
DX: M32.13 Lung involvement in systemic lupus erythematosus (principal); Z13.6 Encounter for screening for cardiovascular disorders
CPT/HCPCS: 36415; 80053; 80061; 85025

== ENCOUNTER 2025-03-13 10:51 | Outpatient (REF) | payer OTHER, SELFPAY ==
--- OUTSIDE RECORDS SUMMARY | 2025-03-13 15:09 | XMS_ITS | Clinical Summary ---
Author Organization [facility] ity Address [address] [place] [address] Care Team Providers Care Talent Manager Name Role Phone Unavailable Primary Care Provider [...] Depression Screening 04/20/2024 COVID-19 Vaccine (1 - 2024-2 6 season) 2024 Influenza Vaccine (#1) 2024 RSV [...]
== END 2025-03-13 10:52 | disposition home or self-care (01) ==
LOC: HO.LNP 10:51
PROVIDERS: PCP Internal Medicine; Visit Provider Student in an Organized Health Care Education/Training Program
DX: B35.1 Tinea unguium (principal)
CPT/HCPCS: 87101; 87220; 88304; 88312

== ENCOUNTER 2025-03-13 10:51 | Outpatient (AMB) | payer OTHER, SELFPAY ==
--- NOTE | 2025-03-13 10:57 | A.OFFVIS_ITS ---
Vital Signs 03/13/25 11:04 Height 5 ft 7 in Weight 173 lb BMI 27.1 Intake Visit Reasons: bilateral tinea unguium Intake Note: Bob is a 54 year old male who presents today as a new patient for a evaluation of his bilateral great toe tinea unguium. Patient reports discoloration and fungal about 17 years. Patient had oral medication which helped his fungal/ discolaration. He states once he finshed the medicaiton and his fungus came back. Allergies No Known Allergies (No Known Allergies*) Allergy (Verified 03/13/25 11:01) HPI HPI bilateral tinea unguium: Details: 54 y/o male past medical history of systemic lupus erythematosus, interstitial lung disease, presents for fungal nail infection. He states that he has had fungal nails for over 20 years. He previously received treatment with a another business applications specialist 2 years ago and took 2 months of terbinafine. He saw improvement in his nails however it was recommended by his bag machine operator helper who stopped taking the terbinafine due to possible side effect of lupus flares. He states he works in boots all day and his toes do get sweaty however a mixture to dries his feet and clean at home. [facility] Medical History History of COVID-19 Interstitial lung disease due to connective tissue disease Scleroderma Systemic lupus erythematosus Surgical History H/O colonoscopy History of lymph node excision (~10/08/16) S/P tendon repair (~09/23/17) H/O left inguinal hernia repair (~1976) Family History Father Diabetes High blood pressure Mother High blood pressure Social History Housing: House Alcohol intake: former Patient Tobacco Use Status: Never used Tobacco e-Cigarette/Vaping Use: Never Used Second Hand Smoke Exposure: No service: No Current occupational status: employed 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 No pedal edema. Derm: Dystrophic thickened discolored brittle nails bilateral hallux and 5th digit nails. Neuro: Protective sensation grossly intact to bilateral lower extremities MSK: No tenderness on palpation of the nails. Assessment & Plan Assessment & Plan (1) Onychomycosis: Code(s): B35.1 - Tinea unguium Category: Medical Plan: * Nail biopsy performed of bilateral hallux nail. * Discussed treatment options including topical treatment versus oral antifungal medications. * Discussed that it will likely require oral medication. We will likely recommend an alternative antifungal, pending biopsy results. * Rx Jublia * Follow up in 1 month Orders: Orders Fungus Cult Hair/Skin/Nail Today B35.1 - Tinea unguium Surgical Today B35.1 - Tinea unguium Medications: New efinaconazole 10% (Jublia) Apply topically to all infected toenails once per day 1 appl topical BEDTIME 4 mL 3RF Fungal toenails 48 weeks B35.1 - Tinea unguium Coding Level of Care Code New Pt Level 4 (16712) Diagnoses Onychomycosis B35.1 Time Spent (min) 30
[2025-03-13 11:04] VITALS: BMI 27.1
--- OUTSIDE RECORDS SUMMARY | 2025-03-13 13:45 | XMS_ITS | Encounter Summary ---
Author Organization [facility] Address [address] [place] [address] Phone Care Team Providers Care President Ergonomic Consulting Name Role Phone Jarrett Powell MD Primary Care Provider [phone] Zarina Reed MD Unavailable [phone] Encounter Details Date Type Department Care Team (Late st Contact Info) Description 04/06/2023 Procedure Pass [facility] [facility] [address] [place] [phone] Social History Tobacco Use Types Packs/Day Years [...] on filedocumented in this encounter Care Teams President Ergonomic Consulting Relationship Specialty Start Date End Date Jarrett Powell MD [address] [place] [address] [place] [address] PCP - General Internal Medicine 01/15/23 Zarina Reed MD [address] [place] [address] Rheumatology 04/02/23 documented as of this encounter Additional Source Comments The information contained in this document represents components of the legal health record. It is not the complete legal health record.[facility]
--- OUTSIDE RECORDS SUMMARY | 2025-03-13 13:47 | XMS_ITS | Encounter Summary ---
Author Organization [facility] Address [address] [place] [address] Care Team Providers Care Golf Ball Inspector Name Role Phone Jarrett Powell Primary Care Provider [phone] Encounter Details Date Type Department Care Team ([facility] st Contact Info) Description 05/29/2022 Telephone [facility] Patient Access Center [address] [place] [address] Telephone Intake, Staff Social History Tobacco Use [...] Care Team (Late st Contact Info) Description 04/05/2025 11:30 AM EST Appointment [facility] Pulmonary Function Lab [address] [place] [address] 04/05/2025 2:20 PM EST Follow-Up [facility] Lung and Allergy Center [address] [place] [address] Evs Attendant: Rosangela Figueroa MD [address] [place] [address] documented as of this encounter Visit Diagnoses Not on filedocumented in this encounter Care Teams Golf Ball Inspector Relationship Specialty Start Date End Date Jarrett Powell [address] [place] [address] [place] [address] PCP - General Internal Medicine 02/16/17 documented as of this encounter
--- OUTSIDE RECORDS SUMMARY | 2025-03-13 13:47 | XMS_ITS | Encounter Summary ---
Author Organization [facility] Address [address] [place] [address] Care Team Providers Care Aoc Director Combat Operations Officer Name Role Phone Jarrett Powell Primary Care Provider [phone] Reason for Visit * Reason Comments Med Refill Encounter Details Date Type Department Care Team (Late st Contact Info) Description 03/09/2025 Refill [facility] Rheumatology Clinic [address] [place] [address] Senior Interactive Developer: Zarina Hinton MD [address] [place] [address] Social History Tobacco Use Types Packs/Day Years Used Date Smoking Tobacco: Former Cigarettes 0.1 3 1 5 - 1987 Passive Smoke Exposure: Past Smokeless Tobacco: Never Comments:FORMERSOCIAL SMOKER QUITAGE 16 [...] Industry Job Start Date Job End Date gillian Not on file Not on file Not on file documented as of this encounter Plan of Treatment Upcoming Encounters Date Type Department Care Team (Late st Contact Info) Description 04/05/2025 11:30 AM EST Appointment [facility] Pulmonary Function Lab [address] [place] [address] 04/05/2025 2:20 PM EST Follow-Up [facility] Lung [facility] Allergy [facility] [address] [place] [address] Senior Interactive Developer: Rosangela Figueroa MD [address] [place] [address] documented as of this encounter Visit Diagnoses Not on filedocumented in this encounter Care Teams Aoc Director Combat Operations Officer Relationship Specialty Start Date End Date Jarrett Powell [address] [place] [address] [place] [address] PCP - General Internal Medicine 02/16/17 documented as of this encounter
--- OUTSIDE RECORDS SUMMARY | 2025-03-13 13:47 | XMS_ITS | Clinical Summary ---
Author Organization [facility] Address [address] [place] [address] Care Team Providers Care Hearth Feeder Name Role Phone Jarrett Powell Primary Care Provider [phone] Allergies No known active allergies Medications ibuprofen [...] scan, lung 03/13/2017 Overview (03/13/2017): CTA at [facility] Ctr 09/11/2016: Emphysematous changes of the upper [...] arthritis LN: LN bx axillary October 2016 [facility] Sweats Hypergammaglobulinemia +anti DS DNA crithidaie 1:20 Plaquenil Feb 2017- MMF May 2017. Increased to 3 gms summer 2018 Mild proteinuria Assessment & Plan (02/19/2017 9:49 PM EDT): I did not have his full records, but he had a high titer KHALIDA, > 1, 280 and antibodies to Matute/PIPE FITTER SUPERVISOR, negative anti DS DNA antibodies, normal C3 [...] Encounters Date Type Department Care Team Description 03/09/2025 Refill [facility] Rheumatology Clinic [address] [place] [address] School Librarian: Zarina Hinton MD from Last 3 Months Immunizations Immunization Administration Dates Next Due Covid-19, Pfizer, mRNA, Ulster valent, PF, 30 mcg/0.3 mL dose, terri-sucrose [...] Cigarettes 0.1 3 1 985 - 1987 Passive Smoke Exposure: Past Smokeless [...] Info) Description 04/05/2025 11:30 AM EST Appointment [facility] Pulmonary Function Lab [address] [place] [address] 04/05/2025 2:20 PM EST Follow-Up [facility] [address] [place] [address] School Librarian: Usman Hoyt, Rosangela Benavidez MD [address] [place] [address] Health Maintenance Due Date Last Done Comments [...] 06/01/2024, 0 07/30/2023, 01/22/2022, Additional history exists Procedures * Due to [place] AfterYes law, this organization might not be sharing negative HIV tests. Procedure Name Priority Date/Time Associated Diagnosis Comments COMPREHENSIVE METABOLIC PANEL Routine 06/01/2024 5:31 PM EST Other systemic lupus erythematosus with lung involvement from Last 3 Months or Most Recently Relevant to Health Maintenance Results * Due to [place] AfterYes law, this organization might not be sharing negative HIV tests. * (ABNORMAL) Comprehensive metabolic panel (06/01/2024 5:31 PM EST) NA 138 135 - 145 mmol/L 06/01/2024 6:35 PM [facility] K 3.9 3.5 - 5.3 mmol/L 06/01/2024 6:35 PM [facility] Cl 102 98 - 107 mmol/L 06/01/2024 6:35 PM EST [facility] CO2 27 22 - 32 mmol/L 06/01/2024 6:35 PM [facility] Anion Gap 9 5 - 15 06/01/2024 6:35 PM [facility] Glucose 85 65 - 99 mg/dL 06/01/2024 6:35 PM [facility] Creatinine 1.01 0.60 - 1.30 mg/dL 06/01/2024 6:35 PM [facility] Calcium 9.3 8.6 - 10.5 mg/dL 06/01/2024 6:35 PM [facility] Total Protein 7.9 6.0 - 8.0 g/dL 06/01/2024 6:35 PM [facility] Albumin 4.2 3.5 - 5.2 g/dL 06/01/2024 6:35 PM [facility] Bilirubin, Total 0.2 0.2 - 1.2 mg/dL 06/01/2024 6:35 PM [facility] Alkaline Phosphatase 91 35 - 129 U/L 06/01/2024 6:35 PM [facility] AST 18 10 - 40 U/L 06/01/2024 6:35 PM [facility] ALT <5(L) 10 - 40 U/L 06/01/2024 6:35 PM [facility] BUN 14 7 - 23 mg/dL 06/01/2024 6:35 PM [facility] eGFR 88 >=60 mL/min/1. 73m2 06/01/2024 6:35 PM EST [facility] Comment:The estimated glomer [...] - 4.2 g/dL 06/01/2024 6:35 PM EST [facility] A/G Ratio 1.1(L) 1.5 - 3.0 06/01/2024 6:35 PM EST [facility] Blood Structure of peripheral vein / Unknown Venipuncture / Unknown 06/01/2024 5:31 PM EST 06/01/2024 5:59 PM EST us Zarina Reed MD LAB BLOOD ORDERABLES Final Resul t [facility] [address] [place] [address], from Last 3 Months or Most Recently Relevant to Health Maintenance Insurance [facility] Care Teams Hearth Feeder Relationship Specialty Start Date End Date Andre Jarrett [address] [place] [address] [place] [address] PCP - General Internal Medicine 02/16/17
--- OUTSIDE RECORDS SUMMARY | 2025-03-13 13:47 | XMS_ITS | Clinical Summary ---
Author Organization [facility] Address [address] [place] [address] Care Team Providers Care Drying Can Worker Name Role Phone Unavailable Primary Care Provider [...]
== END 2025-03-13 11:19 | disposition home or self-care (01) ==
LOC: HO.HPODS 10:52
PROVIDERS: PCP Internal Medicine; Visit Provider Student in an Organized Health Care Education/Training Program
DX: B35.1 Tinea unguium (principal)
CPT/HCPCS: 99204

== ENCOUNTER 2025-04-12 11:43 | Outpatient (AMB) | payer OTHER, SELFPAY ==
--- OUTSIDE RECORDS SUMMARY | 2025-04-12 11:46 | XMS_ITS | Encounter Summary ---
Author Organization [facility] Address [address] [place] [address] Care Team Providers Care Ekg Technician Name Role Phone Jarrett Powell Primary Care Provider [phone] Encounter Details Date Type Department Care Team ([facility] st Contact Info) Description 05/29/2022 Telephone [facility] Patient Access Center [address] [place] [address] Telephone Intake, Staff Social History Tobacco Use [...] documented in this encounter Plan of Treatment Not on file documented as of this encounter Visit Diagnoses Not on filedocumented in this encounter Care Teams Ekg Technician Relationship Specialty Start Date End Date Jarrett Powell [address] [place] [address] dr Marli [place]es, [place] [address] PCP - General Internal Medicine 02/16/17 documented as of this encounter
--- OUTSIDE RECORDS SUMMARY | 2025-04-12 11:46 | XMS_ITS | Encounter Summary ---
Author Organization [facility] Address [address] [place] [address] Phone Care Team Providers Care Stripping Cutter And Winder Name Role Phone Jarrett Powell MD Primary Care Provider [phone] Zarina Reed MD Unavailable [phone] Encounter Details Date Type Department Care Team (Late st Contact Info) Description 04/06/2023 Procedure Pass [facility] [address] [place] [phone] Social History Tobacco Use Types Packs/Day Years [...] on filedocumented in this encounter Care Teams Stripping Cutter And Winder Relationship Specialty Start Date End Date Jarrett Powell MD [address] [place] [address] [place] [address] PCP - General Internal Medicine 01/15/23 Zarina Reed MD [address] [place] [address] Rheumatology 04/02/23 documented as of this encounter Additional Source Comments The information contained in this document represents components of the legal health record. It is not the complete legal health record.[facility]
--- OUTSIDE RECORDS SUMMARY | 2025-04-12 11:46 | XMS_ITS | Clinical Summary ---
Author Organization [facility] ity Address [address] [place] [address] Care Team Providers Care Liquefied Petroleum Gasfitter Name Role Phone Unavailable Primary Care Provider [...]
--- OUTSIDE RECORDS SUMMARY | 2025-04-12 11:46 | XMS_ITS | Clinical Summary ---
Author Organization [facility] Address [address] [employer] [facility] [address] [place] [address] Phone Care Team Providers Care Home Health Specialist Name Role Phone Jarrett Powell MD Primary Care Provider [phone] Zarina Reed MD Unavailable [phone] Allergies No known active allergies Medications mycophenolate [...] arthritis LN: LN bx axillary October 2016 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 Increased to 3 gms summer 2018 Mild proteinuria Last Assessment & Plan: I did not have his full records, but he had a high titer KHALIDA, > 1, 280 and antibodies to Matute/HAMMER HEATER, negative anti DS DNA antibodies, normal C3 [...] VACCINES (50+ years) (3 of 3 - PCV20 or PCV21) 07/11/2025 07/11/2020, 10/12/2018 SCREENING [...] this topic Medical Devices Implanted Type Area Site Specialist Device Identifier Shelf Expiration Date Model / Serial / Lot System Proximal Tenodesis Implant Kit - [id number] Implanted:Qty: 1 on 04/06/2023 by Trav Klein MD at [facility] Right: Shoulder [employer] 11/18/2027 AR-2290 / / [id number] Suture [id number] Biocomposite Swivelock Double Loaded Bx/5ea - [id number] Implanted:Qty: 2 on 04/06/2023 by Trav Klein MD at [facility] Right: Shoulder [employer] 01/17/2025 [id number] -2 / / [id number] Insurance O HMO O O Member Subscriber Plan / Payer (Ef fective 2024-) Name:Bob Deluca Relation to Subscriber:Self Name:Bob Deluca Payer ID:Not on file Type:HMO Address: [place] [id number] [place] [address] HMO WORKERS COMPENSATION Advance Directives For more information, please contact: [phone] (9AM - 5PM [facility], Thursday-Thursday) Documents on File Type Date Recorded Patient Help Desk Rep Expl anation Healthcare Proxy 04/07/2023 5:33 PM Care Teams Home Health Specialist Relationship Specialty Start Date End Date Jarrett Powell MD [address] [place] [address] PCP - General Internal Medicine 01/15/23 Zarina Reed MD [address] [place] [address] Rheumatology 04/02/23 Additional Source Comments The information contained in this document represents components of the legal health record. It is not the complete legal health record.[facility]
--- OUTSIDE RECORDS SUMMARY | 2025-04-12 11:47 | XMS_ITS | Clinical Summary ---
Author Organization [facility] Prior to 09/17/[address] [place] [address] Care Team Providers Care Inspection Engineer Name Role Phone Unavailable Primary Care Provider [...]
--- OUTSIDE RECORDS SUMMARY | 2025-04-12 11:47 | XMS_ITS | Clinical Summary ---
Author Organization [facility] Address [address] [place] [address] Care Team Providers Care Geodesist Name Role Phone Jarrett Powell Primary Care Provider [phone] Allergies No known active allergies Medications ibuprofen (MOTRIN) 800 mg tablet Take 800 mg by mouth every 8 hours as needed. 1 Active hydroxychloroquine (PLAQUENIL) 200 mg tablet Take 1 tablet (200 mg total) by mouth 2 times a day. 180 tablet 3 5 Active mycophenolate (CELLCEPT) 500 mg tabletIndications: Other systemic lupus erythematosus with lung involvement Take 3 tablets (1,500 mg total) by mouth 2 times a day. 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 Increased to 3 gms summer 2018 Mild proteinuria Assessment & Plan (02/19/2017 9:49 PM EDT): I did not have his full records, but he had a high titer KHALIDA, > 1, 280 and antibodies to [place]/[employer]GE ST[employer]ACH[employer], negative anti DS DNA antibodies, normal C3 [...] Encounters Date Type Department Care Team Description 03/14/2025 [facility] [address] [place] [id number] Sanitation Worker: Zarina Hinton MD Other systemic lupus erythematosus with lung involvement (Primary Dx) 03/09/2025 [facility] [address] [place] [id number] Sanitation Worker: Zarina Hinton MD from Last 3 Months Immunizations Immunization Administration Dates Next Due Covid-19, Pfizer, mRNA, Beckham valent, PF, 30 mcg/0.3 mL dose, terri-sucrose [...] 06/01/2024 4:16 PM EST Plan of Treatment Health Maintenance Due [...] Additional history exists Procedures * Due to [place] flaveit law, this organization might not be sharing negative HIV tests. Procedure Name Priority Date/Time Associated Diagnosis Comments COMPREHENSIVE METABOLIC PANEL Routine 06/01/2024 5:31 PM EST Other systemic lupus erythematosus with lung involvement from Last 3 Months or Most Recently Relevant to Health Maintenance Results * Due to [place] flaveit law, this organization might not be sharing negative HIV tests. * (ABNORMAL) Comprehensive metabolic panel (06/01/2024 5:31 PM EST) NA 138 135 - 145 mmol/L 06/01/2024 6:35 PM EST [facility] K 3.9 3.5 - 5.3 mmol/L 06/01/2024 6:35 PM [facility] Cl 102 98 - 107 mmol/L 06/01/2024 6:35 PM [facility] CO2 27 22 - 32 mmol/L 06/01/2024 6:35 PM [facility] Anion Gap 9 5 - 15 06/01/2024 6:35 PM [facility] Glucose 85 65 - 99 mg/dL 06/01/2024 6:35 PM [facility] Creatinine 1.01 0.60 - 1.30 mg/dL 06/01/2024 6:35 PM [facility] Calcium 9.3 8.6 - 10.5 mg/dL 06/01/2024 6:35 PM [facility] Total Protein 7.9 6.0 - 8.0 g/dL 06/01/2024 6:35 PM [facility] Albumin 4.2 3.5 - 5.2 g/dL 06/01/2024 6:35 PM [facility] Bilirubin, Total 0.2 0.2 - 1.2 mg/dL 06/01/2024 6:35 PM [facility] Alkaline Phosphatase 91 35 - 129 U/L 06/01/2024 6:35 PM [facility] AST 18 10 - 40 U/L 06/01/2024 6:35 PM [facility] ALT <5(L) 10 - 40 U/L 06/01/2024 6:35 PM [facility] BUN 14 7 - 23 mg/dL 06/01/2024 6:35 PM [facility] eGFR 88 >=60 mL/min/1. 73m2 06/01/2024 6:35 PM [facility] Comment:The estimated glomer [...] - 4.2 g/dL 06/01/2024 6:35 PM EST [facility] A/G Ratio 1.1(L) 1.5 - 3.0 06/01/2024 6:35 PM EST [facility] Blood Structure of peripheral vein / Unknown Venipuncture / Unknown 06/01/2024 5:31 PM EST 06/01/2024 5:59 PM EST us Zarina Reed MD LAB BLOOD ORDERABLES Final Resul t [facility] [address] [place] [address], from Last 3 Months or Most Recently Relevant to Health Maintenance Insurance [employer] Care Teams Geodesist Relationship Specialty Start Date End Date Jarrett Powell [address] [place] [address] [place] [address] PCP - General Internal Medicine 02/16/17
--- NOTE | 2025-04-12 11:52 | MHC.OFFVIS ---
Intake Visit Reasons: tinea unguim Intake Note: Bob is a 54 year old male who presents today for a follow up on his tinea unguium. At his last visit a nail biopsy was performed and specimens where sent out for pathology and microbiology. He was prescribed Jublia to treat his fungal nails. Patient reports that the cream that that was perscribed is not helping Allergies No Known Allergies (No Known Allergies*) Allergy (Verified 04/12/25 11:56) HPI HPI tinea unguim: Details: 54 y/o male past medical history of systemic lupus erythematosus, interstitial lung disease, returns for fungal nail infection. He has been applying the Jublia once per day for the past month. He has not seen any improvement yet. History: He states that he has had fungal nails for over 20 years. He previously received treatment with a another shower attendant 2 years ago and took 2 months of terbinafine. He saw improvement in his nails however it was recommended by his designer architect who stopped taking the terbinafine due to possible side effect of lupus flares. He states he works in boots all day and his toes do get sweaty however a mixture to dries his feet and clean at home. [facility] Medical History History of COVID-19 Interstitial lung disease due to connective tissue disease Scleroderma Systemic lupus erythematosus Surgical History H/O colonoscopy History of lymph node excision (~10/08/16) S/P tendon repair (~09/23/17) H/O left inguinal hernia repair (~1976) Family History Father Diabetes High blood pressure Mother High blood pressure Social History Housing: House Alcohol intake: former Patient Tobacco Use Status: Never used Tobacco e-Cigarette/Vaping Use: Never Used Second Hand Smoke Exposure: No service: No Current occupational status: employed 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 No pedal edema. Derm: Dystrophic thickened discolored brittle nails bilateral hallux and 5th digit nails. Neuro: Protective sensation grossly intact to bilateral lower extremities MSK: No tenderness on palpation of the nails. Results Reviewed Results Reviewed: 03/13/25 Diagnosis Nail, bilateral hallux, excision: Onychomycosis Fungus Cult Hair/Skin/Nail Preliminary 03/18/25-1257 No fungi isolated to date. Culture is examined weekly for a total of 28 days incubation. A change in status will result in an updated culture report. Assessment & Plan Assessment & Plan (1) Onychomycosis: Code(s): B35.1 - Tinea unguium Category: Medical Plan: Reviewed nail biopsy bilateral hallux nail. Discussed treatment options including topical treatment versus oral antifungal medications. Discussed that it will likely require oral medication. We will likely recommend an alternative antifungal, pending biopsy results. Cultures are still pending. Recommended to continue Jublia for the total three-month period prior to transitioning to oral antifungals. Follow up in 1 month Coding Level of Care Code Est Pt Level 3 (54814) Diagnoses Onychomycosis B35.1 Time Spent (min) 20
== END 2025-04-12 12:05 | disposition home or self-care (01) ==
LOC: HO.HPODS 11:43
PROVIDERS: PCP Internal Medicine; Visit Provider Student in an Organized Health Care Education/Training Program
DX: B35.1 Tinea unguium (principal)
CPT/HCPCS: 99213

== ENCOUNTER 2025-04-19 13:42 | Outpatient (AMB) | payer OTHER, SELFPAY ==
[2025-04-19 13:44] VITALS: BP 130/72; PULSE 106; O2SAT 96; BMI 27.3
--- NOTE | 2025-04-19 13:44 | A.OFFPC_ITS ---
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 News Required: No Accompanied by: Self / Same As Patient Allergies No Known Allergies (No Known Allergies*) Allergy (Verified 04/19/25 14:01) Medication List - Last Reconciled 04/19/25 by Jarrett Powell MD ciclopirox 8% 1 appl topical BEDTIME 12 weeks efinaconazole 10% (Jublia) 1 appl topical BEDTIME 48 weeks hydroxychloroquine 200 mg PO BID ibuprofen 600 mg PO Q8H PRN 30 days ketoconazole 2% 1 appl topical DAILY 4 weeks mycophenolate mofetil 1,500 mg PO BID Tobacco use date assessed: 04/19/25 Dental Screening Dental Screen Date: 04/19/25 Did you have a dental visit in the last 12 months?: No Did you have a dental problem in the last 6 months where you did not have access to dental care?: No Was dental information given to patient?: No HPI re-establish care HPI Details Patient is a 54 year old male [facility]. He has not been seen in this clinic for almost three years (last visit was on 05/20/2022) States that he was just seeing his research neuropsychologist (Dr. Zarina Reed) at [facility] in [place] for regular follow up of his SLE and Scelroderma and Dr. Reed was also acting as his PCP for the past couple of year but she has retired from active practice last year and he would now like to transfer all of his care, including rheumatology, back here locally He did request for a referral to rheumatology here and he is now scheduled to be seen by Dr. Sosa in a couple of months on 06/06/2025 He is currently still on Hydroxychloroquin and Mycophenolate for his rheumatologic issues and would like to know if I will refill his meds in the meantime when needed until he is seen by Dr. oSsa States that he currently feels okay He denies any headaches or dizziness Denies any chest pains, no SOB No nausea/vomiting, no abdominal pain No change in bowel habits noted He is currently on Jublia for fungal toenail infestation and is seeing podiatry here at [facility] for these A review of his recent lab works done back on 02/18/2025 revealed that his cholesterol is 50 points higher than it was three years ago, though still within the normal range, while his kidney and liver function tests were normal. He would also like to get his flu shot today [facility]END[facility] S[facility] TO [facility] Medical History History of COVID-19 Scleroderma Systemic lupus erythematosus Interstitial lung disease due to connective tissue disease Surgical History H/O colonoscopy History of lymph node excision (~10/08/16) S/P tendon repair (~09/23/17) H/O left inguinal hernia repair (~1976) Family History Father Diabetes High blood pressure Mother High blood pressure Social History Housing: House Alcohol intake: former Patient Tobacco Use Status: Never used Tobacco e-Cigarette/Vaping Use: Never Used Second Hand Smoke Exposure: No service: No Current occupational status: employed 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 1. Little interest or pleasure in doing things: not at all 2. Feeling down, depressed, or hopeless: not at all 3. Trouble falling or staying asleep, or sleeping too much: not at all 4. Feeling tired or having little energy: not at all 5. Poor appetite or overeating: not at all 6. Feeling bad about yourself - or that you are a failure or have let yourself or your family down: not at all 7. Trouble concentrating on things, such as reading the newspaper or watching television: not at all 8. Moving or speaking so slowly that other people could have noticed. Or the opposite - being so fidgety or restless that you have been moving around a lot more than usual: not at all 9. Thoughts that you would be better off or of hurting yourself in some way: not at all Total score: 0 Depression Screening Interpretation: Negative Depression Screening Done: Yes 13322 - PHQ-9 Billing: Yes Source: Developed by Drs. Joseluis Garcia, Yanique Robles, Tiago Chaudhry and colleagues, with an educational adwoa from [employer]. Thrive Questionnaire Date Thrive assessed: 04/19/25 I am a: Patient What is your living situation today?: I have a steady place to live Within the past 12 months, did the food you bought not last and you didn't have the money to get more?: I choose not to answer this question Within the past 12 months, did you worry whether your food would run out before you got money to buy more?: I choose not to answer this question Do you have trouble paying for medicines?: Yes Do you have trouble getting transportation to medical appointments?: No Do you have trouble paying your heating and electricity bill?: No Do you have trouble taking care of your child, family member or friend?: No Do you have trouble with day-to-day activities such as bathing, preparing meals, shopping, managing finances, etc.?: No Are you currently unemployed and looking for a job?: No Are you interested in more education?: No Please select the resources that you would like help with: None Currently or been in a relationship where the following occur: No concerns reported THRIVE Score: 0 AUDIT C Alcohol Use Questionnaire (AUDIT-C) 1. How often do you have a drink containing alcohol?: Never 3. How often do you have six or more drinks on one occasion?: Never Total Score: 0 Score Reviewed/Action Taken: Yes DEB-7 AMB Questionnaire DEB-7 Date DEB - 7 assessed: 04/19/25 Feeling nervous, anxious, or on edge: 0 = Not at all Not being able to stop or control worryin = Not at all Worrying too much about different things: 3 = Nearly every day Trouble relaxin = Several days Being so restless that it is hard to sit still: 0 = Not at all Becoming easily annoyed or irritable: 0 = Not at all Feeling afraid as if something awful might happen: 0 = Not at all Total DEB-7 score (0-4 normal; 5-9 mild; 10-14 moderate; 15-21 severe): 4 Source: Developed by Drs. Joseluis aGrcia, Yanique Robles, Tiago Chaudhry and colleagues, with an educational adwoa from [employer]. Review of Systems Const Denies chills, Denies fatigue, Denies fever(s) and Denies headache(s) ENT Denies dysphagia, Denies dizziness, Denies otalgia, Denies headache(s), Denies neck pain, Denies odynophagia and Denies sore throat Card Denies chest pain, Denies rapid heart rate, Denies irregular heart rhythm, Denies palpitations and Denies dyspnea Resp Denies chest congestion, Denies cough and Denies dyspnea GI Denies abdominal pain, Denies constipation, Denies dysphagia, Denies heartburn, Denies diarrhea, Denies nausea, Denies odynophagia and Denies vomiting Denies difficulty urinating, Denies dysuria, Denies nocturia and Denies urinary frequency Musc Denies back pain, Denies arthralgias, Denies joint swelling and Denies neck pain Skin/Breast Denies rash Neuro Denies dizziness, Denies headache(s) and Denies paresthesias Psych Denies anxiety and Denies depression Endo Denies fatigue and Denies palpitations Physical exam (Primary Care) Vital Signs: Last Vital Signs Pulse 106 H 04/19/25 13:44 BP 130/72 04/19/25 13:44 Pulse Ox 96 04/19/25 13:44 Oxygen Delivery Method Room Air 04/19/25 13:44 BMI result Body Mass Index 27.3 Tobacco/Smoking Status: Tobacco use Status Tobacco use date assessed 04/19/25 04/19/25 13:50 Patient Tobacco Use Status Never used Tobacco 04/19/25 13:50 e-Cigarette/Vaping Use Never Used 04/19/25 13:50 PHQ-9: PHQ-9 Score PHQ-9: Total score 0 04/19/25 14:17 Depression Screening Interpretation: Negative Thrive Assessment: Date of Thrive Assessment Date Thrive assessed 04/19/25 04/19/25 13:50 Currently or been in a relationship where the following occur: No concerns reported Const General: no acute distress and alert HENMT Ears: TM's normal bilaterally and EAC's normal Throat: Yes posterior oropharynx normal and Yes tonsils normal (no TP congestion) Neck Neck: Yes supple and No lymphadenopathy Thyroid: Thyroid normal Resp Auscultation: clear to auscultation bilaterally, no rales and no wheezes Cardio Rate: regular rate Rhythm: regular rhythm Heart sounds: no murmurs GI Palpation (GI): Soft to palpation and nontender Auscultation: normal bowel sounds General: Yes no CVA tenderness Back/Spine/Pelvis Back: no CVA tenderness Thoracic/Lumbar Spine: No lumbar spinal tenderness Skin Rashes: no rashes Extrem General: Yes no clubbing, cyanosis or edema Office Procedures Flu Questionnaire Does the patient have a severe egg allergy?: No Does the patient have severe life threatening allergies?: No Does the patient have a fever or illness today?: No Has the patient ever had Guillain-[place] Syndrome?: No Has the patient ever had any past reaction to a flu shot?: No Immunizations Fluarix [id number] (PF) 45 mcg (15 mcg x 3)/0.5 mL IM syringe Performing Provider: Jarrett Powell MD [facility] Administered by: MELIDA Marx on 04/19/25 14:17 Dose Route Admin Location Dispensed Lot Number Expiration Date [facility] Manager Fire 0.5 mL IM Left Deltoid 0.5 mL [id number] 10/17/25 [id number] VNG VIS Given Date VIS Provided VIS Publication Date 04/19/25 Single Vaccine 24 Eligibility Eligibility Date Funding Source Not [facility] Eligible 04/19/25 Private Results Reviewed Results Reviewed: Laboratory Tests 02/18/25 10:54 WBC 7.1 Hgb 13.3 L D Hct 41.1 L D Plt Count 390 Sodium 139 Potassium 4.1 Estimated GFR > 60 Random Glucose 86 Calcium 9.1 AST 27 ALT 13 Triglycerides 53 Cholesterol 168 LDL Cholesterol, Calc 110 H HDL Cholesterol 48 Coding Level of Care Code Est Pt Level 4 (67565) Diagnoses Interstitial lung disease due to connective tissue disease J84.89; M35.9 Systemic lupus erythematosus with lung involvement, unspecified SLE type M32.13 Systemic lupus erythematosus type: unspecified Systemic lupus erythematosus organ involvement: lung involvement Scleroderma M34.9 Inflammatory arthritis M19.90 Onychomycosis B35.1 Additional Codes PHQ-9 - 60123 - PHQ-9 Billing: Yes ([id number]) Assessment & Plan Assessment & Plan (1) Interstitial lung disease due to connective tissue disease: Code(s): J84.89 - Other specified interstitial pulmonary diseases; M35.9 - Systemic involvement of connective tissue, unspecified Category: Medical Plan: His chest CT done back in 2017 revealed evidence of subpleural interstitial fibrosis predominantly involving both lower lobes of the lungs with few scattered foci of emphysematous disease of both upper lobes, which may represent changes secondary to IPF, collagen vascular disease or asbestosis, given the predominant lower lobar distribution Repeat chest CT at [facility] subsequently reportedly showed some possible ground- glass opacities and traction bronchiectasis Follow up with Dr. Gonzáles at [facility] Pulmonary regularly as scheduled (2) Systemic lupus erythematosus: Code(s): M32.9 - Systemic lupus erythematosus, unspecified Category: Medical Qualifiers: Systemic lupus erythematosus type: unspecified Systemic lupus erythemat osus organ involvement: lung involvement Qualified Code(s): M32.13 - Lung involvement in systemic lupus erythematosus Plan: Patient has SLE with some sclerodermatous features. He reportedly had previous Raynaud's, inflammatory arthritis and significant esophageal disease and was on oral prednisone previously but patient was able to taper himself off prednisone and states that he has been doing well since with no flare up of his previous symptoms Continue Hydroxychloroquine 200 mg BID and Mycophenolate 1500 mg BID He was seeing Dr. Zarina Reed at [facility] in [place] in the past for rheumatology follow up and management until she retired from practice last year He is now scheduled to be seen by Dr. Sosa of [facility] Rheumatology in a couple of month and he will be seeing [facility] Rheumatology from then on for continuing management of his chronic autoimmune conditions (3) Scleroderma: Code(s): M34.9 - Systemic sclerosis, unspecified Category: Medical Plan: NSIP-ILD pattern is more common in systemic sclerosis than in SLE States that other than occasional mild DURAN over the years, he has had no significant symptoms and has no trouble swallowing He will be following up with [facility] for this as well when he is seen to establish care with them in a couple of months (4) Inflammatory arthritis: Code(s): M19.90 - Unspecified osteoarthritis, unspecified site Category: Medical Plan: States that his joint symptoms have been stable/controlled lately He used to take oral Prednisone but has been able to come off the Rx on his own and he has just been taking OTC Ibuprofen PRN (5) Onychomycosis: Code(s): B35.1 - Tinea unguium Category: Medical Plan: Continue Jublia 10% topically Q HS Follow up with podiatry as scheduled Plan Per request, flu vaccine given today To return in 4 months for his next annual physical examination Orders: Orders TSH reflex Free T4 4 Months E78.00 - Pure hypercholesterolemia, unspecified, Z00.00 - Encounter for general adult medical examination without abnormal findings UA CC w/rflx Micro + Cult 4 Months R30.0 - Dysuria, Z00.00 - Encounter for general adult medical examination without abnormal findings Vitamin D 25-OH Total 4 Months E55.9 - Vitamin D deficiency, unspecified, Z00.00 - Encounter for general adult medical examination without abnormal findings Influenza [id number] Immunization 04/19/25 Z23 - Encounter for immunization Complete Blood Count Auto Diff 4 Months D64.9 - Anemia, unspecified, Z00.00 - Encounter for general adult medical examination without abnormal findings Comprehensive [place]. Panel Fast 4 Months E78.00 - Pure hypercholesterolemia, unspecified, Z00.00 - Encounter for general adult medical examination without abnormal findings Lipid Panel 4 Months E78.00 - Pure hypercholesterolemia, unspecified, Z00.00 - Encounter for general adult medical examination without abnormal findings Prostate Specific Antigen Scr 4 Months Z00.00 - Encounter for general adult medical examination without abnormal findings
--- OUTSIDE RECORDS SUMMARY | 2025-04-19 15:01 | XMS_ITS | Clinical Summary ---
Author Organization [facility] Address [address] [facility] [address] [place] [address] Phone Care Team Providers Care Seismic Interpreter Name Role Phone Jarrett Powell MD Primary Care Provider [phone] Zarina Reed MD Unavailable [phone] Allergies No known active allergies Medications mycophenolate [...] arthritis LN: LN bx axillary October 2016 [facility] Sweats Hypergammaglobulinemia +anti DS DNA crithidaie 1:20 Plaquenil Feb 2017- MMF May 2017. Increased to 3 gms summer 2018 Mild proteinuria Last Assessment & Plan: I did not have his full records, but he had a high titer KHALIDA, > 1, 280 and antibodies to Matute/CHILDREN COUNSELOR, negative anti DS DNA antibodies, normal C3 [...] this topic Medical Devices Implanted Type Area Assessment Coordinator Device Identifier Shelf Expiration Date Model / Serial / Lot System Proximal Tenodesis Implant Kit - [id number] Implanted:Qty: 1 on 04/06/2023 by Trav Klein MD at [facility] Right: Shoulder [employer] 11/18/2027 [id number] / / [id number] [place] Suture [id number] Biocomposite Swivelock Double Loaded Bx/5ea - [id number] Implanted:Qty: 2 on 04/06/2023 by Trav Klein MD at [facility] Right: Shoulder [employer] 01/17/2025 [id number] -[id number] / / [id number] Insurance O HMO O O Member Subscriber Plan / Payer (Ef fective 2024-) Name:Bob Deluca Relation to Subscriber:Self Name:Bob Deluca Payer ID:Not on file Type:HMO Address: [place] [id number] [place] [address] HMO WORKERS COMPENSATION Advance Directives For more information, please contact: [phone] (9AM - 5PM [facility], Thursday-Thursday) Documents on File Type Date Recorded Patient Hearth Feeder Expl anation Healthcare Proxy 04/07/2023 5:33 PM Care Teams Seismic Interpreter Relationship Specialty Start Date End Date Jarrett Powell MD [address] [place] [address] PCP - General Internal Medicine 01/15/23 Zarina Reed MD [address] [place] [address] Rheumatology 04/02/23 Additional Source Comments The information contained in this document represents components of the legal health record. It is not the complete legal health record.[facility]
--- OUTSIDE RECORDS SUMMARY | 2025-04-19 15:01 | XMS_ITS | Encounter Summary ---
Author Organization [facility] Address [address] [place] [address] Care Team Providers Care Mop Maker Name Role Phone Jarrett Powell Primary Care Provider [phone] Encounter Details Date Type Department Care Team ([facility] st Contact Info) Description 05/29/2022 Telephone [facility] [address] [place] [address] Telephone Intake, Staff Social History Tobacco Use [...] on filedocumented in this encounter Care Teams Mop Maker Relationship Specialty Start Date End Date Jarrett Powell [address] [place] [address] dr Marli Calles, [place] [address] PCP - General Internal Medicine 02/16/17 documented as of this encounter
--- OUTSIDE RECORDS SUMMARY | 2025-04-19 15:01 | XMS_ITS | Clinical Summary ---
Author Organization [facility] ity Address [address] [place] [address] Care Team Providers Care Behavioral Health Technician Name Role Phone Unavailable Primary Care Provider [...]
--- OUTSIDE RECORDS SUMMARY | 2025-04-19 15:01 | XMS_ITS | Encounter Summary ---
Author Organization [facility] Address [address] [place] [address] Phone Care Team Providers Care Processing Assistant Name Role Phone Jarrett Powell MD Primary Care Provider [phone] Zarina Reed MD Unavailable [phone] Encounter Details Date Type Department Care Team (Late st Contact Info) Description 04/06/2023 Procedure [place] [facility] [place] [facility] [address] [place] [id number] Social History Tobacco Use Types Packs/Day Years [...] on filedocumented in this encounter Care Teams Processing Assistant Relationship Specialty Start Date End Date Jarrett Powell MD [address] [place] [address] [place] [address] PCP - General Internal Medicine 01/15/23 Zarina Reed MD [address] [place] [address] Rheumatology 04/02/23 documented as of this encounter Additional Source Comments The information contained in this document represents components of the legal health record. It is not the complete legal health record.[facility]
--- OUTSIDE RECORDS SUMMARY | 2025-04-19 15:01 | XMS_ITS | Clinical Summary ---
Author Organization [facility] Prior to 09/17/[address] [place] [address] Care Team Providers Care Disease Management Nurse Name Role Phone Unavailable Primary Care Provider [...]
--- OUTSIDE RECORDS SUMMARY | 2025-04-19 15:01 | XMS_ITS | Clinical Summary ---
Author Organization [facility] Address [address] [place] [address] Care Team Providers Care Plate Painter Apprentice Name Role Phone Jarrett Powell Primary Care Provider [phone] Allergies No known active allergies Medications ibuprofen [...] 2 times a day. 180 tablet 5 Active Active Problems Problem Noted Date Diagnosed Date High risk medication use 07/12/2020 Immunosuppressed status 07/01/2017 Interstitial lung disease 06/01/2017 Raynaud's phenomenon (secondary) 03/26/[address] scan, lung 03/13/2017 Overview (03/13/2017): CTA at [facility] 09/11/2016: Emphysematous changes of the [...] arthritis LN: LN bx axillary October 2016 [facility] Sweats Hypergammaglobulinemia +anti DS DNA crithidaie 1:20 Plaquenil Feb 2017- MMF May 2017. Increased to 3 gms summer 2018 Mild proteinuria Assessment & Plan (02/19/2017 9:49 PM EDT): I did not have his full records, but he had a high titer KHALIDA, > 1, 280 and antibodies to Matute/FIREARMS INSTRUCTOR, negative anti DS DNA antibodies, normal C3 [...] Date Type Department Care Team Description 03/14/2025 Refill [facility] [address] [place] [address] Lead Data Entry Operator: Zarina Hinton MD Other systemic lupus erythematosus with lung involvement (Primary Dx) 03/09/2025 Refill [facility] [address] [place] [address] Lead Data Entry Operator: Zarina Hinton MD from Last 3 Months Immunizations Immunization Administration Dates Next Due Covid-19, Pfizer, mRNA, [place] valent, PF, 30 mcg/0.3 mL dose, terri-sucrose [...] Additional history exists Procedures * Due to [place] [employer] law, this organization might not be sharing negative HIV tests. Procedure Name Priority Date/Time Associated Diagnosis Comments COMPREHENSIVE METABOLIC PANEL Routine 06/01/2024 5:31 PM EST Other systemic lupus erythematosus with lung involvement from Last 3 Months or Most Recently Relevant to Health Maintenance Results * Due to [place] [employer] law, this organization might not be sharing negative HIV tests. * (ABNORMAL) Comprehensive metabolic panel (06/01/2024 5:31 PM EST) NA 138 135 - 145 mmol/L 06/01/2024 6:35 PM EST [facility] K 3.9 3.5 - 5.3 mmol/L 06/01/2024 6:35 PM EST [facility] Cl 102 98 - 107 mmol/L 06/01/2024 6:35 PM [facility] CO2 27 22 - 32 mmol/L 06/01/2024 6:35 PM [facility] Anion Gap 9 5 - 15 06/01/2024 6:35 PM [facility] Glucose 85 65 - 99 mg/dL 06/01/2024 6:35 PM [facility] Creatinine 1.01 0.60 - 1.30 mg/dL 06/01/2024 6:35 PM [facility] Calcium 9.3 8.6 - 10.5 mg/dL 06/01/2024 6:35 PM [facility] Total Protein 7.9 6.0 - 8.0 g/dL 06/01/2024 6:35 PM [facility] Albumin 4.2 3.5 - 5.2 g/dL 06/01/2024 6:35 PM [facility] Bilirubin, Total 0.2 0.2 - 1.2 mg/dL 06/01/2024 6:35 PM [facility] Alkaline Phosphatase 91 35 - 129 U/L 06/01/2024 6:35 PM [facility] AST 18 10 - 40 U/L 06/01/2024 6:35 PM [facility] ALT <5(L) 10 - 40 U/L 06/01/2024 6:35 PM [facility] BUN 14 7 - 23 mg/dL 06/01/2024 6:35 PM [facility] eGFR 88 >=60 mL/min/1. 73m2 06/01/2024 6:35 PM [facility] Comment:The estimated glomer ular filtration [...] - 4.2 g/dL 06/01/2024 6:35 PM EST [facility] A/G Ratio 1.1(L) 1.5 - 3.0 06/01/2024 6:35 PM EST [facility] Blood Structure of peripheral vein / Unknown Venipuncture / Unknown 06/01/2024 5:31 PM EST 06/01/2024 5:59 PM EST us Zarina Reed MD LAB BLOOD ORDERABLES Final Resul t [facility] [address] [place] [address], [place] from Last 3 Months or Most Recently Relevant to Health Maintenance Insurance [employer] Care Teams Plate Painter Apprentice Relationship Specialty Start Date End Date Andre Jarrett [address] [place] [address] [place] [address] PCP - General Internal Medicine 02/16/17
== END 2025-04-19 14:20 | disposition home or self-care (01) ==
LOC: HO.HMCH 13:42
PROVIDERS: PCP Internal Medicine; Visit Provider Internal Medicine
DX: Z23 Encounter for immunization (principal)

== ENCOUNTER → 2025-04-19 13:42 | Outpatient (BNVA) | payer OTHER, SELFPAY | PROVIDERS: PCP Internal Medicine; Visit Provider Internal Medicine | DX: J84.89 Other specified interstitial pulmonary diseases (principal); M35.9 Systemic involvement of connective tissue, unspecified; M32.13 Lung involvement in systemic lupus erythematosus; M34.9 Systemic sclerosis, unspecified; M19.90 Unspecified osteoarthritis, unspecified site; B35.1 Tinea unguium; Z13.31 Encounter for screening for depression; Z23 Encounter for immunization; Z79.899 Other long term (current) drug therapy | CPT/HCPCS: 90471; 90656; 96127 ==